=== PATIENT | female | born 1940 | race Caucasian/White ===

== ENCOUNTER 2022-08-24 12:30 | Inpatient (IN) ==
--- NOTE | 2022-08-24 13:20 | Emergency Department Note ---
HPI General Chief complaint: Urogenital-Female Stated complaint: bleeding Time Seen by Provider: 08/24/22 12:32 Source: patient and family Mode of arrival: wheelchair History of Present Illness HPI Narrative: Narrative: Patient is an 81-year-old female with a complex medical history who presents to the emergency department due to concern for blood in her stool. She states that she thinks that she has had blood in her stool for a while, but that it increased over the weekend. She states that she was seen at [facility] on 08/21/2022, and that they did not find any blood in her stool at that time. She states that since then she has had multiple episodes of what feels like blood in her stool, but states that she is not able to see. Her son looked and saw blood in toilet, and then her daughter looked later and saw blood in the toilet. She states that since being seen at [place] she has developed lightheadedness, shortness of breath, chest tightness, fatigue, and generalized weakness. She denies any other symptoms at this time. Related Data Home Medications Medication Instructions Recorded Confirmed albuterol sulfate 90 mcg/actuation 2 puff INH BID PRN shortness of 04/20/16 08/24/22 aerosol inhaler breath budesonide-formoterol HFA 160 10.2 gm IH BID 04/20/16 08/25/22 mcg-4.5 mcg/actuation aerosol inhaler carbidopa ER 50 mg-levodopa 200 mg 1 tab PO QID 11/14/18 08/24/22 tablet,extended release hydrocortisone 2.5 % topical cream 1 applic topical BID PRN unknown 11/14/18 07/01/22 acetaminophen 325 mg capsule 500 mg PO Q6H PRN Pain, Moderate 01/16/19 08/24/22 ropinirole 1 mg tablet 1 mg PO TID 01/16/19 08/24/22 dulaglutide 0.75 mg/0.5 mL 0.75 mg subcut QWEEK 02/16/20 07/01/22 subcutaneous pen injector (Trulicity) omeprazole 20 mg capsule,delayed 20 mg PO QDAY 07/01/20 08/24/22 release cholestyramine-aspartame 4 gram PO TID PRN unknown 01/07/21 07/01/22 oral powder (Cholestyramine Light) loratadine 10 mg tablet 10 mg PO QDAY 01/07/21 07/01/22 fluoxetine 60 mg tablet 60 mg PO QDAY 04/07/21 08/24/22 magnesium 250 mg tablet 500 mg PO QDAY 07/01/22 08/24/22 amlodipine 5 mg tablet 5 mg PO QDAY 08/24/22 08/24/22 atorvastatin 40 mg tablet 40 mg PO QHS 08/24/22 08/24/22 furosemide 20 mg tablet (Lasix) 20 mg PO QDAY 08/24/22 08/24/22 gabapentin 100 mg capsule 100 mg PO TID 08/24/22 08/24/22 minocycline 50 mg tablet 50 mg PO QDAY 08/24/22 08/24/22 potassium chloride 10 mEq 10 meq PO QDAY 08/24/22 08/24/22 tablet,extended release vibegron 75 mg tablet (Gemtesa) 75 mg PO QDAY 08/24/22 08/24/22 Previous Rx's Medication Instructions Recorded polyethylene glycol 3350 17 17 g PO QDAY PRN constipation #119 01/15/21 gram/dose oral powder (Miralax) grams clopidogrel 75 mg tablet (Plavix) 75 mg PO QDAY #1 tab 08/26/22 cefpodoxime 200 mg tablet 200 mg PO BID #4 tabs 08/28/22 Allergies Allergy/AdvReac Type Severity Reaction Status Date / Time prednisone Allergy Unknown Unknown Verified 08/24/22 12:41 codeine AdvReac Mild Abdominal Verified 08/24/22 17:33 Pain Diclofenac [From Voltaren] AdvReac Mild Abdominal Verified 08/24/22 17:33 Pain doxycycline AdvReac Mild Abdominal Verified 08/24/22 17:33 Pain NSAIDS (Non-Steroidal AdvReac Mild Abdominal Verified 08/24/22 17:33 Anti-Inflamma Pain Sulfa (Sulfonamide AdvReac Mild Abdominal Verified 08/24/22 17:33 Antibiotics) Pain Review of Systems ROS ROS Narrative: Narrative: Constitutional: Reports weakness (Generalized); Denies fever Eyes: Denies eye pain or vision change ENT ED: Denies throat pain or rhinorrhea Cardiovascular: Reports chest pain and edema; Denies dyspnea on exertion or orthopnea Respiratory: Reports shortness of breath; Denies cough Gastrointestinal: Reports diarrhea and hematochezia; Denies abdominal pain, nausea, vomiting, constipation or melena Musculoskeletal: Denies back pain or myalgia Integumentary: Denies rash or lesions Neurological: Reports weakness (Generalized); Denies headache, numbness, confusion, abnormal gait or dizziness Endocrine: Reports fatigue PFSH Narrative Patient History Narrative: Narrative: Medical/Surgical/Family History All Active Problems (Updated 09/03/22 @ 14:04 by Raul Higginbotham MD) COPD exacerbation (Chronic) Acute exacerbation of chronic obstructive airways disease (Chronic) Bronchitis (Chronic) CKD (chronic kidney disease), stage III (Chronic) Herpes zoster (Chronic) Onychomycosis (Chronic) Candidiasis of skin (Chronic) Diabetes mellitus (Chronic) Diabetic peripheral neuropathy (Chronic) Obesity (Chronic) Tobacco dependence syndrome (Chronic) Chronic depression (Chronic) Parkinsons disease (Chronic) Essential hypertension (Chronic) Peripheral vascular disease (Chronic) Allergic rhinitis (Chronic) COLD (chronic obstructive lung disease) (Chronic) Callus of foot (Chronic) Actinic keratosis (Chronic) Edema (Chronic) Muscle weakness (Chronic) Increased urinary frequency (Chronic) Open wound of lower limb (Chronic) Impacted cerumen, left ear (Chronic) Left shoulder pain (Chronic) 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) Hypertensive nephrosclerosis (Chronic) Urinary tract infection (Acute) Urinary tract infection (Chronic) CKD stage G3a/A2, GFR 45-59 and albumin creatinine ratio 30-299 mg/g (Chronic) Body mass index greater than 30 (Chronic) Abdominal pain (Chronic) Diarrhea (Chronic) Dysuria (Chronic) Confusion (Chronic) Shakiness (Chronic) Urgency incontinence (Chronic) OAB (overactive bladder) (Chronic) Hematochezia (Acute) Anemia (Acute) Medical History Abdominal pain Actinic keratosis Acute exacerbation of chronic obstructive airways disease Allergic rhinitis Body mass index greater than 30 Bronchitis Callus of foot Candidiasis of skin Chronic depression CKD (chronic kidney disease), stage III HTN, age related decline in GFR >> DM. Small kidneys with 200 cc PVR Volume COLD (chronic obstructive lung disease) Confusion COPD exacerbation Diabetes mellitus Diabetic peripheral neuropathy Diarrhea Dysuria Edema Essential hypertension Herpes zoster History of cataract Hypertensive nephrosclerosis No significant proteinuria Blood pressure controlled on lisinopril 2.5 mg daily Impacted cerumen, left ear Increased urinary frequency Left shoulder pain joint Muscle weakness Obesity Onychomycosis Toenails Open wound of lower limb Parkinsons disease Peripheral vascular disease Shakiness Tobacco dependence syndrome Urgency incontinence Urinary retention with incomplete bladder emptying Seen on U/S. DM, parkinsons or Rx Seen by Dr Davey, now [facility] Urology Urinary tract infection Surgical History History of adenoidectomy History of appendectomy (~1969) History of cholecystectomy History of colonoscopy W/biopsy History of gastrointestinal surgery (~07/24/20) Endoscopy History of heart surgery (~11/03/17) Cardiac stents History of hysterectomy History of knee surgery History of left knee replacement (~07/24/20) joint replacement History of salpingo-oophorectomy (~1979) History of surgery removal 2 ribs History of tonsillectomy History of tonsillectomy and adenoidectomy History of total abdominal hysterectomy (~1969) History of wisdom tooth extraction Hx of heart artery stent Family History Mother Alcoholism Father Alcoholism Daughter Lupus erythematosus Arthritis Other Diabetes Hypertension Social History Smoking Status: Former smoker and Smokeless tobacco Alcohol Intake Frequency: does not drink Substance Use: does not use Exam Narrative Narrative: Narrative: General General appearance: Present alert and in no apparent distress; Absent anxious, appears intoxicated or sleepy Head Head: Present atraumatic and normocephalic Eye Eye: Present EOMI; Absent scleral icterus or nystagmus ENT ENT: Present mucous membranes moist; Absent nasal congestion Neck Neck: Present full ROM and trachea midline Chest Chest: Present normal inspection and symmetric chest wall rise Respiratory Respiratory: Present normal lung sounds bilaterally; Absent respiratory distress, rales/crackles, wheezes, stridor or accessory muscle use Cardiovascular Cardiovascular: Present regular rate, normal rhythm and normal heart sounds Adbominal Abdominal: Present soft and normal bowel sounds; Absent distention, tenderness, guarding, rebound or rigidity Rectal Rectal: Present heme (+) stool and bloody stool Extremities Extremities: Present normal inspection, full ROM, pedal edema and pretibial edema; Absent tenderness Back Back: Present normal inspection and full ROM; Absent CVA tenderness (R) or CVA tenderness (L) Neurological Neurological: Present alert and oriented X3 Psychiatric Psychiatric: Present normal affect and normal mood Skin Skin: Present warm (WNL), dry and normal color Course Vital Signs Vital signs: Vital Signs Temperature 97.2 F 08/24/22 12:34 Pulse Rate 87 08/24/22 12:34 Respiratory Rate 20 08/24/22 12:34 Blood Pressure 152/71 08/24/22 12:34 Pulse Oximetry (%) 92 08/24/22 12:34 Oxygen Delivery Method Room Air 08/24/22 12:34 Temperature 98.1 F 08/28/22 13:17 Pulse Rate 84 08/28/22 13:17 Respiratory Rate 20 08/28/22 13:17 Blood Pressure 119/55 08/28/22 13:17 Pulse Oximetry (%) 93 08/28/22 13:17 Oxygen Delivery Method Nasal Cannula 08/28/22 13:17 Oxygen Flow Rate (L/min) 3 08/28/22 13:17 MDM MDM Narrative Medical decision making narrative: Narrative: Patient is an 81-year-old female with a complex medical history who presents to the emergency department due to concern for blood in her stool. Patient has blood in her stool. Her lightheadedness could also be due to infection including to UTI. Patient's Hgb is 7.3. Due to Hgb, hematochezia, and symptoms I have spoken to Dr. Robert who has agreed to see patient and to colonoscopy tomorrow. I have spoken to Dr. Payton and he has agreed to see and evaluate patient for admission. Lab Data 08/27/22 05:31 08/26/22 05:45 Labs: Lab Results 08/24/22 08/24/22 08/24/22 Range/Units 13:49 14:21 14:21 WBC 11.3 H (4.5-11.0) K/mcL RBC 3.26 L (3.59-5.38) M/mcL Hgb 7.3 L (11.2-15.7) g/dL Hct 26.2 L (34.1-44.9) % POC Hct (36-48) MCV 80.4 (80.0-100.0) fL MCH 22.4 L (26.0-34.0) pg MCHC 27.9 L (31.0-36.0) g/dL RDW 16.9 H (11.5-14.5) % Plt Count 329 (140-440) K/mcL MPV 9.2 (8.8-12.5) fL Immature Gran % (Auto) 0.3 (0.0-0.5) % Neut % (Auto) 55.4 (38.0-78.0) % Lymph % (Auto) 28.7 (15.5-49.0) % Tompkins % (Auto) 8.9 (1.0-12.0) % Eos % (Auto) 5.9 (0.0-7.0) % Baso % (Auto) 0.8 (0.0-2.0) % Lymph # (Auto) 3.24 (1.50-4.80) K/mcL Tompkins # (Auto) 1.00 H (0.10-0.90) K/mcL Eos # (Auto) 0.67 (0.00-0.70) K/mcL Baso # (Auto) 0.09 (0.00-0.30) K/mcL Seg Neutrophils % 45 (38-78) % Band Neutrophils % 5 (0-10) % Lymphocytes % 33 (15-49) % Monocytes % (Manual) 11 (1-12) % Eosinophils % (Manual) 6 (0-7) % Basophils % (Manual) (0-2) % Immature Gran # 0.03 (0.00-0.05) K/mcl Absolute Neutrophils 6.25 (1.80-8.00) K/mcL Reactive Lymphocytes (0-2) % Platelet Estimate Normal (Normal) RBC Morphology Abnormal A (Normal) Hypochromasia 3+ A (None Seen) Anisocytosis 1+ A (None Seen) Microcytosis 1+ A (None Seen) POC Sodium (133-145) Sodium (133-145) mmol/L POC Potassium (3.3-5.1) Potassium (3.3-5.1) mmol/L POC Chloride (96-108) Chloride (96-108) mmol/L Carbon Dioxide (22-30) mmol/L POC Total CO2 (22-30) Anion Gap (8.0-16.0) POC BUN (6-20) BUN (8-23) mg/dL Creatinine (0.6-1.1) mg/dL POC Creatinine (0.6-1.2) GFR Calculation Glucose (70-105) mg/dL POC Glucose (70-105) Uric Acid (2.5-8.0) mg/dL Calcium (8.6-10.4) mg/dL POC WB Ioniz Calcium (1.16-1.32) Phosphorus (2.5-4.5) mg/dL Magnesium (1.6-2.5) mg/dL Total Bilirubin (0.1-1.0) mg/dL Direct Bilirubin (0-0.3) mg/dL GGT (5-36) U/L AST (<32) U/L ALT (<40) U/L Alkaline Phosphatase (39-117) U/L Lactate Dehydrogenase (135-225) U/L C-Reactive Protein (0.03-0.80) mg/dL NT-Pro-B Natriuret Pep (<450.0) pg/mL Total Protein (5.9-8.4) gm/dL Albumin (3.2-5.2) gm/dL Globulin (2.2-3.7) gm/dL Albumin/Globulin Ratio (1.0-2.3) Triglycerides (<150) mg/dL Procalcitonin (<0.10) ng/mL Urine Color Yellow Urine Appearance Hazy A (Clear) Urine pH 6.0 (5.0-9.0) Ur Specific Macy 1.011 (1.000-1.035) Urine Protein 30 A (Negative) mg/dL Urine Glucose (UA) Negative (Negative) mg/dL Urine Ketones Negative (Negative) mg/dL Urine Occult Blood >=1.0 A (Negative) mg/dL Urine Nitrate Negative (Negative) Urine Bilirubin Negative (Negative) mg/dL Urine Urobilinogen Negative mg/dL Ur Leukocyte Esterase 250 A (Negative) /uL Urine RBC 56 H (0-3) /hpf Urine WBC 89 H (0-4) /hpf Ur Squamous Epith Cells 5 H (0-4) /hpf Urine Bacteria None (0) /hpf Ur Culture Indicated? No Mycoplasma pneumon IgG Mycoplasma pneumon IgM U/mL Ur Strep pneumoniae Ag (Negative) POC Troponin I (0.00-0.08) 08/24/22 08/24/22 08/24/22 Range/Units 14:23 14:26 15:00 WBC (4.5-11.0) K/mcL RBC (3.59-5.38) M/mcL Hgb (11.2-15.7) g/dL Hct (34.1-44.9) % POC Hct 25.0 L (36-48) MCV (80.0-100.0) fL MCH (26.0-34.0) pg MCHC (31.0-36.0) g/dL RDW (11.5-14.5) % Plt Count (140-440) K/mcL MPV (8.8-12.5) fL Immature Gran % (Auto) (0.0-0.5) % Neut % (Auto) (38.0-78.0) % Lymph % (Auto) (15.5-49.0) % Tompkins % (Auto) (1.0-12.0) % Eos % (Auto) (0.0-7.0) % Baso % (Auto) (0.0-2.0) % Lymph # (Auto) (1.50-4.80) K/mcL Tompkins # (Auto) (0.10-0.90) K/mcL Eos # (Auto) (0.00-0.70) K/mcL Baso # (Auto) (0.00-0.30) K/mcL Seg Neutrophils % (38-78) % Band Neutrophils % (0-10) % Lymphocytes % (15-49) % Monocytes % (Manual) (1-12) % Eosinophils % (Manual) (0-7) % Basophils % (Manual) (0-2) % Immature Gran # (0.00-0.05) K/mcl Absolute Neutrophils (1.80-8.00) K/mcL Reactive Lymphocytes (0-2) % Platelet Estimate (Normal) RBC Morphology (Normal) Hypochromasia (None Seen) Anisocytosis (None Seen) Microcytosis (None Seen) POC Sodium 137 (133-145) Sodium (133-145) mmol/L POC Potassium 4.3 (3.3-5.1) Potassium (3.3-5.1) mmol/L POC Chloride 101 (96-108) Chloride (96-108) mmol/L Carbon Dioxide (22-30) mmol/L POC Total CO2 26.0 (22-30) Anion Gap (8.0-16.0) POC BUN 20 (6-20) BUN (8-23) mg/dL Creatinine (0.6-1.1) mg/dL POC Creatinine 1.2 (0.6-1.2) GFR Calculation Glucose (70-105) mg/dL POC Glucose 182 H (70-105) Uric Acid (2.5-8.0) mg/dL Calcium (8.6-10.4) mg/dL POC WB Ioniz Calcium 1.14 L (1.16-1.32) Phosphorus (2.5-4.5) mg/dL Magnesium (1.6-2.5) mg/dL Total Bilirubin (0.1-1.0) mg/dL Direct Bilirubin (0-0.3) mg/dL GGT (5-36) U/L AST (<32) U/L ALT (<40) U/L Alkaline Phosphatase (39-117) U/L Lactate Dehydrogenase (135-225) U/L C-Reactive Protein (0.03-0.80) mg/dL NT-Pro-B Natriuret Pep 117.9 (<450.0) pg/mL Total Protein (5.9-8.4) gm/dL Albumin (3.2-5.2) gm/dL Globulin (2.2-3.7) gm/dL Albumin/Globulin Ratio (1.0-2.3) Triglycerides (<150) mg/dL Procalcitonin (<0.10) ng/mL Urine Color Urine Appearance (Clear) Urine pH (5.0-9.0) Ur Specific Macy (1.000-1.035) Urine Protein (Negative) mg/dL Urine Glucose (UA) (Negative) mg/dL Urine Ketones (Negative) mg/dL Urine Occult Blood (Negative) mg/dL Urine Nitrate (Negative) Urine Bilirubin (Negative) mg/dL Urine Urobilinogen mg/dL Ur Leukocyte Esterase (Negative) /uL Urine RBC (0-3) /hpf Urine WBC (0-4) /hpf Ur Squamous Epith Cells (0-4) /hpf Urine Bacteria (0) /hpf Ur Culture Indicated? Mycoplasma pneumon IgG Mycoplasma pneumon IgM U/mL Ur Strep pneumoniae Ag (Negative) POC Troponin I < 0.02 (0.00-0.08) 08/24/22 08/24/22 08/24/22 Range/Units 15:15 15:15 17:29 WBC (4.5-11.0) K/mcL RBC (3.59-5.38) M/mcL Hgb (11.2-15.7) g/dL Hct (34.1-44.9) % POC Hct (36-48) MCV (80.0-100.0) fL MCH (26.0-34.0) pg MCHC (31.0-36.0) g/dL RDW (11.5-14.5) % Plt Count (140-440) K/mcL MPV (8.8-12.5) fL Immature Gran % (Auto) (0.0-0.5) % Neut % (Auto) (38.0-78.0) % Lymph % (Auto) (15.5-49.0) % Tompkins % (Auto) (1.0-12.0) % Eos % (Auto) (0.0-7.0) % Baso % (Auto) (0.0-2.0) % Lymph # (Auto) (1.50-4.80) K/mcL Tompkins # (Auto) (0.10-0.90) K/mcL Eos # (Auto) (0.00-0.70) K/mcL Baso # (Auto) (0.00-0.30) K/mcL Seg Neutrophils % (38-78) % Band Neutrophils % (0-10) % Lymphocytes % (15-49) % Monocytes % (Manual) (1-12) % Eosinophils % (Manual) (0-7) % Basophils % (Manual) (0-2) % Immature Gran # (0.00-0.05) K/mcl Absolute Neutrophils (1.80-8.00) K/mcL Reactive Lymphocytes (0-2) % Platelet Estimate (Normal) RBC Morphology (Normal) Hypochromasia (None Seen) Anisocytosis (None Seen) Microcytosis (None Seen) POC Sodium (133-145) Sodium (133-145) mmol/L POC Potassium (3.3-5.1) Potassium (3.3-5.1) mmol/L POC Chloride (96-108) Chloride (96-108) mmol/L Carbon Dioxide (22-30) mmol/L POC Total CO2 (22-30) Anion Gap (8.0-16.0) POC BUN (6-20) BUN (8-23) mg/dL Creatinine (0.6-1.1) mg/dL POC Creatinine (0.6-1.2) GFR Calculation Glucose (70-105) mg/dL POC Glucose (70-105) Uric Acid (2.5-8.0) mg/dL Calcium (8.6-10.4) mg/dL POC WB Ioniz Calcium (1.16-1.32) Phosphorus (2.5-4.5) mg/dL Magnesium (1.6-2.5) mg/dL Total Bilirubin (0.1-1.0) mg/dL Direct Bilirubin (0-0.3) mg/dL GGT (5-36) U/L AST (<32) U/L ALT (<40) U/L Alkaline Phosphatase (39-117) U/L Lactate Dehydrogenase (135-225) U/L C-Reactive Protein 1.00 H (0.03-0.80) mg/dL NT-Pro-B Natriuret Pep (<450.0) pg/mL Total Protein (5.9-8.4) gm/dL Albumin (3.2-5.2) gm/dL Globulin (2.2-3.7) gm/dL Albumin/Globulin Ratio (1.0-2.3) Triglycerides (<150) mg/dL Procalcitonin 0.10 H (<0.10) ng/mL Urine Color Urine Appearance (Clear) Urine pH (5.0-9.0) Ur Specific Macy (1.000-1.035) Urine Protein (Negative) mg/dL Urine Glucose (UA) (Negative) mg/dL Urine Ketones (Negative) mg/dL Urine Occult Blood (Negative) mg/dL Urine Nitrate (Negative) Urine Bilirubin (Negative) mg/dL Urine Urobilinogen mg/dL Ur Leukocyte Esterase (Negative) /uL Urine RBC (0-3) /hpf Urine WBC (0-4) /hpf Ur Squamous Epith Cells (0-4) /hpf Urine Bacteria (0) /hpf Ur Culture Indicated? Mycoplasma pneumon IgG < or = 0.90 Mycoplasma pneumon IgM 81 U/mL Ur Strep pneumoniae Ag (Negative) POC Troponin I (0.00-0.08) 08/24/22 08/25/22 08/25/22 Range/Units 17:29 05:56 05:56 WBC 12.0 H (4.5-11.0) K/mcL RBC 3.97 (3.59-5.38) M/mcL Hgb 9.6 L (11.2-15.7) g/dL Hct 31.7 L (34.1-44.9) % POC Hct (36-48) MCV 79.8 L (80.0-100.0) fL MCH 24.2 L (26.0-34.0) pg MCHC 30.3 L (31.0-36.0) g/dL RDW 16.3 H (11.5-14.5) % Plt Count 310 (140-440) K/mcL MPV 8.9 (8.8-12.5) fL Immature Gran % (Auto) 0.3 (0.0-0.5) % Neut % (Auto) 57.2 (38.0-78.0) % Lymph % (Auto) 24.8 (15.5-49.0) % Tompkins % (Auto) 10.2 (1.0-12.0) % Eos % (Auto) 6.7 (0.0-7.0) % Baso % (Auto) 0.8 (0.0-2.0) % Lymph # (Auto) 2.97 (1.50-4.80) K/mcL Tompkins # (Auto) 1.22 H (0.10-0.90) K/mcL Eos # (Auto) 0.80 H (0.00-0.70) K/mcL Baso # (Auto) 0.09 (0.00-0.30) K/mcL Seg Neutrophils % (38-78) % Band Neutrophils % (0-10) % Lymphocytes % (15-49) % Monocytes % (Manual) (1-12) % Eosinophils % (Manual) (0-7) % Basophils % (Manual) (0-2) % Immature Gran # 0.04 (0.00-0.05) K/mcl Absolute Neutrophils 6.87 (1.80-8.00) K/mcL Reactive Lymphocytes (0-2) % Platelet Estimate (Normal) RBC Morphology (Normal) Hypochromasia (None Seen) Anisocytosis (None Seen) Microcytosis (None Seen) POC Sodium (133-145) Sodium 140 (133-145) mmol/L POC Potassium (3.3-5.1) Potassium 4.0 (3.3-5.1) mmol/L POC Chloride (96-108) Chloride 100 (96-108) mmol/L Carbon Dioxide 28 (22-30) mmol/L POC Total CO2 (22-30) Anion Gap 12.0 (8.0-16.0) POC BUN (6-20) BUN 16 (8-23) mg/dL Creatinine 1.0 (0.6-1.1) mg/dL POC Creatinine (0.6-1.2) GFR Calculation 52 Glucose 114 H (70-105) mg/dL POC Glucose (70-105) Uric Acid 5.6 (2.5-8.0) mg/dL Calcium 8.9 (8.6-10.4) mg/dL POC WB Ioniz Calcium (1.16-1.32) Phosphorus 4.3 (2.5-4.5) mg/dL Magnesium 2.0 (1.6-2.5) mg/dL Total Bilirubin 0.6 (0.1-1.0) mg/dL Direct Bilirubin < 0.2 (0-0.3) mg/dL GGT 108 H (5-36) U/L AST 16 (<32) U/L ALT < 5 (<40) U/L Alkaline Phosphatase 82 (39-117) U/L Lactate Dehydrogenase 201 (135-225) U/L C-Reactive Protein (0.03-0.80) mg/dL NT-Pro-B Natriuret Pep (<450.0) pg/mL Total Protein 5.9 (5.9-8.4) gm/dL Albumin 3.5 (3.2-5.2) gm/dL Globulin 2.4 (2.2-3.7) gm/dL Albumin/Globulin Ratio 1.5 (1.0-2.3) Triglycerides 192 H (<150) mg/dL Procalcitonin (<0.10) ng/mL Urine Color Urine Appearance (Clear) Urine pH (5.0-9.0) Ur Specific Macy (1.000-1.035) Urine Protein (Negative) mg/dL Urine Glucose (UA) (Negative) mg/dL Urine Ketones (Negative) mg/dL Urine Occult Blood (Negative) mg/dL Urine Nitrate (Negative) Urine Bilirubin (Negative) mg/dL Urine Urobilinogen mg/dL Ur Leukocyte Esterase (Negative) /uL Urine RBC (0-3) /hpf Urine WBC (0-4) /hpf Ur Squamous Epith Cells (0-4) /hpf Urine Bacteria (0) /hpf Ur Culture Indicated? Mycoplasma pneumon IgG Mycoplasma pneumon IgM U/mL Ur Strep pneumoniae Ag Negative (Negative) POC Troponin I (0.00-0.08) 08/26/22 08/26/22 08/27/22 Range/Units 05:45 05:45 05:31 WBC 14.0 H 11.5 H (4.5-11.0) K/mcL RBC 3.98 3.87 (3.59-5.38) M/mcL Hgb 9.5 L 9.2 L (11.2-15.7) g/dL Hct 32.1 L 31.2 L (34.1-44.9) % POC Hct (36-48) MCV 80.7 80.6 (80.0-100.0) fL MCH 23.9 L 23.8 L (26.0-34.0) pg MCHC 29.6 L 29.5 L (31.0-36.0) g/dL RDW 16.9 H 17.1 H (11.5-14.5) % Plt Count 340 334 (140-440) K/mcL MPV 9.4 9.1 (8.8-12.5) fL Immature Gran % (Auto) 0.5 (0.0-0.5) % Neut % (Auto) 62.3 (38.0-78.0) % Lymph % (Auto) 21.4 (15.5-49.0) % Tompkins % (Auto) 10.0 (1.0-12.0) % Eos % (Auto) 5.1 (0.0-7.0) % Baso % (Auto) 0.7 (0.0-2.0) % Lymph # (Auto) 3.01 (1.50-4.80) K/mcL Tompkins # (Auto) 1.40 H (0.10-0.90) K/mcL Eos # (Auto) 0.71 H (0.00-0.70) K/mcL Baso # (Auto) 0.10 (0.00-0.30) K/mcL Seg Neutrophils % 63 (38-78) % Band Neutrophils % 1 (0-10) % Lymphocytes % 16 (15-49) % Monocytes % (Manual) 12 (1-12) % Eosinophils % (Manual) 4 (0-7) % Basophils % (Manual) 1 (0-2) % Immature Gran # 0.07 H (0.00-0.05) K/mcl Absolute Neutrophils 8.75 H (1.80-8.00) K/mcL Reactive Lymphocytes 3 H (0-2) % Platelet Estimate Normal (Normal) RBC Morphology Abnormal A (Normal) Hypochromasia 1+ A (None Seen) Anisocytosis 2+ A (None Seen) Microcytosis (None Seen) POC Sodium (133-145) Sodium 137 (133-145) mmol/L POC Potassium (3.3-5.1) Potassium 3.9 (3.3-5.1) mmol/L POC Chloride (96-108) Chloride 96 (96-108) mmol/L Carbon Dioxide 28 (22-30) mmol/L POC Total CO2 (22-30) Anion Gap 13.0 (8.0-16.0) POC BUN (6-20) BUN 16 (8-23) mg/dL Creatinine 1.2 H (0.6-1.1) mg/dL POC Creatinine (0.6-1.2) GFR Calculation 42 Glucose 158 H (70-105) mg/dL POC Glucose (70-105) Uric Acid 6.0 (2.5-8.0) mg/dL Calcium 8.6 (8.6-10.4) mg/dL POC WB Ioniz Calcium (1.16-1.32) Phosphorus 4.0 (2.5-4.5) mg/dL Magnesium 1.9 (1.6-2.5) mg/dL Total Bilirubin 0.2 (0.1-1.0) mg/dL Direct Bilirubin < 0.2 (0-0.3) mg/dL GGT 105 H (5-36) U/L AST 18 (<32) U/L ALT < 5 (<40) U/L Alkaline Phosphatase 88 (39-117) U/L Lactate Dehydrogenase 225 (135-225) U/L C-Reactive Protein (0.03-0.80) mg/dL NT-Pro-B Natriuret Pep (<450.0) pg/mL Total Protein 6.2 (5.9-8.4) gm/dL Albumin 3.4 (3.2-5.2) gm/dL Globulin 2.8 (2.2-3.7) gm/dL Albumin/Globulin Ratio 1.2 (1.0-2.3) Triglycerides 179 H (<150) mg/dL Procalcitonin (<0.10) ng/mL Urine Color Urine Appearance (Clear) Urine pH (5.0-9.0) Ur Specific Macy (1.000-1.035) Urine Protein (Negative) mg/dL Urine Glucose (UA) (Negative) mg/dL Urine Ketones (Negative) mg/dL Urine Occult Blood (Negative) mg/dL Urine Nitrate (Negative) Urine Bilirubin (Negative) mg/dL Urine Urobilinogen mg/dL Ur Leukocyte Esterase (Negative) /uL Urine RBC (0-3) /hpf Urine WBC (0-4) /hpf Ur Squamous Epith Cells (0-4) /hpf Urine Bacteria (0) /hpf Ur Culture Indicated? Mycoplasma pneumon IgG Mycoplasma pneumon IgM U/mL Ur Strep pneumoniae Ag (Negative) POC Troponin I (0.00-0.08) EKG Data EKG #1: EKG attestation: Yes I reviewed and interpreted this EKG. EKG results narrative: Normal sinus rhythm with a rate of 91, equivocal axis, MO of 201, QRS 107, QTc of 537, T wave flattening in leads III and aVF, and absence of ST elevation or depression. Discharge Plan Patient/Caregiver Discharge Instructions Pt seen by SH[employer]TLE INSPECTOR/PA only: No Clinical Impression: Hematochezia, Anemia Activity: increase activity as tolerated Patient Disposition: Xfer As Inpt ([facility]) Condition: Fair Discharge Date/Time: 08/24/22 17:15
[2022-08-24 14:39] LABS: Appearance,Urine HAZY (Clear); Bilirubin,Urine Negative (Negative); Color,Urine YELLOW; Culture Indicated,Urine No; Glucose,Urine (UA) Negative (Negative); Ketones,Urine Negative (Negative); Leukocyte Esterase,Urine 250 /uL (Negative); Nitrate,Urine Negative (Negative); Protein,Urine 30 mg/dL (Negative); Specific Gravity,Urine 1.011 (1.000-1.035); Urine Blood >=1.0 mg/dL (Negative); Urine RBC 56 /hpf (0-3); Urine Squamous Epithelial Cell 5 /hpf (0-4); Urine WBC 89 /hpf (0-4); Urobilinogen,Urine Negative
[2022-08-24 14:40] LABS: POC Calcium, Ionized 1.14 (1.16-1.32); POC Creatinine 1.2 (0.6-1.2); POC Potassium 4.3 (3.3-5.1)
[2022-08-24 14:50] LABS: Basophils # (Auto) 0.09 K/mcL (0.00-0.30); Basophils % (Auto) 0.8 % (0.0-2.0); Eosinophils # (Auto) 0.67 K/mcL (0.00-0.70); Eosinophils % (Auto) 5.9 % (0.0-7.0); Hematocrit 26.2 % (34.1-44.9); Hemoglobin 7.3 g/dL (11.2-15.7); Lymphocytes # (Auto) 3.24 K/mcL (1.50-4.80); Lymphocytes % (Auto) 28.7 % (15.5-49.0); Mean Cell Volume 80.4 fL (80.0-100.0); Mean Corpuscular HGB Conc 27.9 g/dL (31.0-36.0); Mean Platelet Volume 9.2 fL (8.8-12.5); Monocytes % (Auto) 8.9 % (1.0-12.0); Neutrophils % (Auto) 55.4 % (38.0-78.0); Platelet Count 329 K/mcL (140-440); RBC 3.26 M/mcL (3.59-5.38); Red Cell Distribution Width 16.9 % (11.5-14.5); WBC 11.3 K/mcL (4.5-11.0)
--- NOTE | 2022-08-24 14:54 | XRay Report ---
INDICATION: SOB, Chest pain TECHNIQUE: AP portable semiupright chest x-ray COMPARISON: Previous chest x-rays dated 08/05/2022, 04/20/2016, 11/14/2015 FINDINGS: Lungs:There are bilateral parenchymal infiltrates which appear worse than on previous examination. These are predominantly interstitial. There is peribronchial thickening consistent with bronchitis or reactive airway disease. Interstitial infiltrates may indicate pneumonia, including atypical pneumonia. Heart, vascular:No significant cardiomegaly. Pulmonary vascularity is normal. No pulmonary edema or pulmonary congestion Mediastinum, josette:No mediastinal widening. No hilar mass Pleura:No pleural fluid. No pleural-based mass or calcification Skeletal:Negative. IMPRESSION: 1. Mildly increasing interstitial infiltrates as above 2. Pneumonia is possible including atypical pneumonia Interpreted and Authenticated by: Jose Pedersen 08/24/22
[2022-08-24] MEDS ORDERED: AZITHROMYCIN 500 MG in DEXTROSE 5% IN WATER 250 ML IV ONE (14:56)
[2022-08-24] MEDS ORDERED: cefTRIAXone 1 GM VIAL IV ONE (14:56)
--- NOTE | 2022-08-24 16:13 | Internal Med History&Physical ---
HPI History of Present Illness Patient information: Note initiated : 08/24/22 at 3:49 pm Service Date, if different from initiated Date: [] Patient: Brigitte Cifuentes a 81 y/o F admitted on for bleeding. Chief Complaint: [] History of present illness: Ms. Cifuentes is a 81 year old F Who presents to the ED with primary blood per rectum. Patient states she is think she has had some bleeding for some time but feels over the past weekend it has increased in per the family they also saw bright red blood in the stool. She is nearly blind so she was I am unable to visualize herself. She does complain of also a significantly increasing weakness. She has some dizziness lightheadedness. She has a chronic cough but says she has a different cough lately does not particularly worse but is deeper and wet and occasionally will cough up thick sputum. She denies out of the normal shortness of breath. She does complain of headaches at times. And is chilled as well at times. She also complains of lower extremity edema which she has had for about a month. She was told by Dr. Marquis's PA that he thought she had CHF and she was being scheduled to see a fretted string instrument repairer. Patient also started on Lasix outpatient In the ED she was found to have a hemoglobin of 7.3 markedly down from her baseline. Stool guaiac was Hemoccult positive. In the ED. Chest x-ray was done which showed some b/l interstitial infiltrates. There was concern for pneumonia patient was started on antibiotics in the ED. Dr. Robert was contacted for the GI bleed who will perform colonoscopy in the morning. In April patient had a transcarotid arterial revascularization by Dr. Marquis. She had previously been on aspirin and Plavix was started in addition at that time. On the discharge instructions patient was to remain on Plavix and aspirin for at least 3 months. Review of Systems: Pertinent positives as above. Denies /fever//nausea/vomiting/abdominal pain//dyspnea/diarrhea. Remaining 10 point review of system reviewed negative PHYSICAL EXAM General: Alert, Awake, No acute Distress, obese Eyes/N/T: EOMI, no scleral icterus, PERRL, Head/Neck: neck supple, full ROM, normocephalic atraumatic CV: RRR, No murmurs, normal s1/s2 Pulm: Fine bibasilar Rales occasional wheeze, no respiratory distress Abd: soft, nontender, +BS x4 Ext: no clubbing/cyanosis, b/l LE 2+ edema, Neuro: Alert, no focal deficits, moves all extremities, CN 2-12 grossly intact, sensations intact b/l upper/lower Psychiatric: Skin: warm/dry, normal color PFSH PFSH All Active Problems (Updated 07/01/22 @ 16:06 by Kike Renee MD) COPD exacerbation (Chronic) Acute exacerbation of chronic obstructive airways disease (Chronic) Bronchitis (Chronic) CKD (chronic kidney disease), stage III (Chronic) Herpes zoster (Chronic) Onychomycosis (Chronic) Candidiasis of skin (Chronic) Diabetes mellitus (Chronic) Diabetic peripheral neuropathy (Chronic) Obesity (Chronic) Tobacco dependence syndrome (Chronic) Chronic depression (Chronic) Parkinsons disease (Chronic) Essential hypertension (Chronic) Peripheral vascular disease (Chronic) Allergic rhinitis (Chronic) COLD (chronic obstructive lung disease) (Chronic) Callus of foot (Chronic) Actinic keratosis (Chronic) Edema (Chronic) Muscle weakness (Chronic) Increased urinary frequency (Chronic) Open wound of lower limb (Chronic) Impacted cerumen, left ear (Chronic) Left shoulder pain (Chronic) 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) Hypertensive nephrosclerosis (Chronic) Urinary tract infection (Acute) Urinary tract infection (Chronic) CKD stage G3a/A2, GFR 45-59 and albumin creatinine ratio 30-299 mg/g (Chronic) Body mass index greater than 30 (Chronic) Abdominal pain (Chronic) Diarrhea (Chronic) Dysuria (Chronic) Confusion (Chronic) Shakiness (Chronic) Urgency incontinence (Chronic) OAB (overactive bladder) (Chronic) Medical History Abdominal pain Actinic keratosis Acute exacerbation of chronic obstructive airways disease Allergic rhinitis Body mass index greater than 30 Bronchitis Callus of foot Candidiasis of skin Chronic depression CKD (chronic kidney disease), stage III HTN, age related decline in GFR >> DM. Small kidneys with 200 cc PVR Volume COLD (chronic obstructive lung disease) Confusion COPD exacerbation Diabetes mellitus Diabetic peripheral neuropathy Diarrhea Dysuria Edema Essential hypertension Herpes zoster History of cataract Hypertensive nephrosclerosis No significant proteinuria Blood pressure controlled on lisinopril 2.5 mg daily Impacted cerumen, left ear Increased urinary frequency Left shoulder pain joint Muscle weakness Obesity Onychomycosis Toenails Open wound of lower limb Parkinsons disease Peripheral vascular disease Shakiness Tobacco dependence syndrome Urgency incontinence Urinary retention with incomplete bladder emptying Seen on [facility]. [facility], parkinsons or Rx Seen by Dr Davey, now [facility] Urology Urinary tract infection Surgical History History of adenoidectomy History of appendectomy (~1969) History of cholecystectomy History of colonoscopy W/biopsy History of gastrointestinal surgery (~07/24/20) Endoscopy History of heart surgery (~11/03/17) Cardiac stents History of hysterectomy History of knee surgery History of left knee replacement (~07/24/20) joint replacement History of salpingo-oophorectomy (~1979) History of surgery removal 2 ribs History of tonsillectomy History of tonsillectomy and adenoidectomy History of total abdominal hysterectomy (~1969) History of wisdom tooth extraction Hx of heart artery stent Family History Mother Alcoholism Father Alcoholism Daughter Lupus erythematosus Arthritis Other Diabetes Hypertension Social History marital status: education level: college occupational status: disabled smoking status: Former smoker smoking status stop date: 04/15/22 alcohol intake frequency: does not drink substance use type: does not use seatbelt use: always working smoke detector in home: Yes firearms in home: No MEDS/ALLERGIES Home Medications and Allergies Home Medications Medication Instructions Recorded Confirmed Type albuterol sulfate 90 mcg/actuation 2 puff INH BID PRN shortness of 04/20/16 08/24/22 History aerosol inhaler breath budesonide-formoterol HFA 160 10.2 gm IH BID 04/20/16 07/01/22 History mcg-4.5 mcg/actuation aerosol inhaler carbidopa ER 50 mg-levodopa 200 mg 1 tab PO QID 11/14/18 08/24/22 History tablet,extended release clopidogrel 75 mg tablet 75 mg PO QDAY 11/14/18 08/24/22 History hydrocortisone 2.5 % topical cream 1 applic topical BID PRN unknown 11/14/18 07/01/22 History acetaminophen 325 mg capsule 500 mg PO Q6H PRN Pain, Moderate 01/16/19 08/24/22 History ropinirole 1 mg tablet 1 mg PO TID 01/16/19 08/24/22 History dulaglutide 0.75 mg/0.5 mL 0.75 mg subcut QWEEK 02/16/20 07/01/22 History subcutaneous pen injector (Trulicity) omeprazole 20 mg capsule,delayed 20 mg PO QDAY 07/01/20 08/24/22 History release aspirin 81 mg tablet,delayed 81 mg PO QAM 01/07/21 08/24/22 History release cholestyramine-aspartame 4 gram PO TID PRN unknown 01/07/21 07/01/22 History oral powder (Cholestyramine Light) loratadine 10 mg tablet 10 mg PO QDAY 01/07/21 07/01/22 History polyethylene glycol 3350 17 17 g PO QDAY PRN constipation #119 01/15/21 07/01/22 Rx gram/dose oral powder (Miralax) grams fluoxetine 60 mg tablet 60 mg PO QDAY 04/07/21 08/24/22 History gabapentin 300 mg tablet,extended 300 mg PO QID 08/04/21 08/24/22 History release 24 hr vibegron 75 mg tablet 75 mg PO QDAY #30 tabs 06/17/22 07/01/22 Rx magnesium 250 mg tablet 500 mg PO QDAY 07/01/22 08/24/22 History amlodipine 5 mg tablet 5 mg PO QDAY 08/24/22 08/24/22 History atorvastatin 40 mg tablet 40 mg PO QHS 08/24/22 08/24/22 History furosemide 20 mg tablet (Lasix) 20 mg PO QDAY 08/24/22 08/24/22 History minocycline 50 mg tablet 50 mg PO QDAY 08/24/22 08/24/22 History potassium chloride 10 mEq 10 meq PO QDAY 08/24/22 08/24/22 History tablet,extended release vibegron 75 mg tablet (Gemtesa) 75 mg PO QDAY 08/24/22 08/24/22 History Allergies Allergy/AdvReac Type Severity Reaction Status Date / Time prednisone Allergy Unknown Unknown Verified 08/24/22 12:41 codeine AdvReac Mild Abdominal Verified 08/24/22 17:33 Pain Diclofenac [From Voltaren] AdvReac Mild Abdominal Verified 08/24/22 17:33 Pain doxycycline AdvReac Mild Abdominal Verified 08/24/22 17:33 Pain NSAIDS (Non-Steroidal AdvReac Mild Abdominal Verified 08/24/22 17:33 Anti-Inflamma Pain Sulfa (Sulfonamide AdvReac Mild Abdominal Verified 08/24/22 17:33 Antibiotics) Pain EXAM Constitutional Vitals: Temp Pulse Resp BP Pulse Ox O2 Del Method O2 Flow Rate 97.2 F 85 20 152/71 100 Nasal Cannula 2 08/24/22 12:34 08/24/22 15:22 08/24/22 12:34 08/24/22 12:34 08/24/22 15:22 08/24/22 15:22 08/24/22 15:22 DATA Data Completed and Pending Labs: Labs from last 24 hours 08/24/22 08/24/22 08/24/22 15:15 15:15 14:26 WBC RBC Hgb Hct POC Hct MCV MCH MCHC RDW Plt Count MPV Immature Gran % (Auto) Neut % (Auto) Lymph % (Auto) [place] % (Auto) Eos % (Auto) Baso % (Auto) Lymph # (Auto) [place] # (Auto) Eos # (Auto) Baso # (Auto) Immature Gran # Absolute Neutrophils POC Sodium POC Potassium POC Chloride POC Total CO2 POC BUN POC Creatinine POC Glucose POC WB Ioniz Calcium C-Reactive Protein Pending Procalcitonin Pending Urine Color Urine Appearance Urine pH Ur Specific [place] Urine Protein Urine Glucose (UA) Urine Ketones Urine Occult Blood Urine Nitrate Urine Bilirubin Urine Urobilinogen Ur Leukocyte Esterase Urine RBC Urine WBC Ur Squamous Epith Cells Urine Bacteria Ur Culture Indicated? POC Troponin I < 0.02 08/24/22 08/24/22 08/24/22 14:23 14:21 13:49 WBC 11.3 H RBC 3.26 L Hgb 7.3 L Hct 26.2 L POC Hct 25.0 L MCV 80.4 MCH 22.4 L MCHC 27.9 L RDW 16.9 H Plt Count 329 MPV 9.2 Immature Gran % (Auto) 0.3 Neut % (Auto) 55.4 Lymph % (Auto) 28.7 [place] % (Auto) 8.9 Eos % (Auto) 5.9 Baso % (Auto) 0.8 Lymph # (Auto) 3.24 [place] # (Auto) 1.00 H Eos # (Auto) 0.67 Baso # (Auto) 0.09 Immature Gran # 0.03 Absolute Neutrophils 6.25 POC Sodium 137 POC Potassium 4.3 POC Chloride 101 POC Total CO2 26.0 POC BUN 20 POC Creatinine 1.2 POC Glucose 182 H POC WB Ioniz Calcium 1.14 L C-Reactive Protein Procalcitonin Urine Color Yellow Urine Appearance Hazy A Urine pH 6.0 Ur Specific [place] 1.011 Urine Protein 30 A Urine Glucose (UA) Negative Urine Ketones Negative Urine Occult Blood >=1.0 A Urine Nitrate Negative Urine Bilirubin Negative Urine Urobilinogen Negative Ur Leukocyte Esterase 250 A Urine RBC 56 H Urine WBC 89 H Ur Squamous Epith Cells 5 H Urine Bacteria None Ur Culture Indicated? No POC Troponin I A/P Narrative A/P Narrative: A: *GIB, lower: *Symptomatic acute blood loss anemia on chronic: 06/25 above *Peripheral edema: pt being sent to see cardiology outpt -pt had an echo last year with good EF and grade I diastolic dysfxn, -bnp low *Generalized weakness/deconditioning: *Carotid aa dz: pt had right IC revascularization by Dr. Marquis last April and Plavix was added to her aspirin for which she was supposed to be on both for at least 3 months. *Viral PNA possible: *DM2 w/neuropathy: cont dhaval *CKD IIIb: *COPD (2L@ home), chronic respiratory failure: *Parkinson disease: Continue Sinemet *HTN: *Depression: Continue SSRI *GERD: *Obesity: BMI 36 * P: -Dr. Du for endoscopy -2prbc transfuse -monitor H&H -hold asa/plavix for now and likely only needs to be on one going forward -rvp, man diff, [place], myco -hold abx for now pending further pna w/u -prn IV lasix -home IH's and supp O2 -ssi -cont norvasc -PT/OT -CM for placement needs -ppx: SCD / home ppi Time Spent With Patient Time: Total time spent is greater than 50% in coordination of care (as documented) at patient's floor/unit and/or counseling patient: Initial: Total time with patient: 75 - 90 minutes
[2022-08-24] MEDS ORDERED: IPRATROPIUM/ALBUTEROL 3 ML AMPUL.NEB NEB PRN (17:29)
[2022-08-24] MEDS ORDERED: 0.9 % SODIUM CHLORIDE 250 ML IV SCH (17:29)
[2022-08-24] MEDS ORDERED: FUROSEMIDE 40 MG/4 ML VIAL IV ONE ×2 (17:29→20:38)
[2022-08-24] MEDS ORDERED: POTASSIUM CHLORIDE 20 MEQ TABLET PO PRN ×2 (17:29)
[2022-08-24] MEDS ORDERED: DEXTROSE 50% 50 ML VIAL IV PRN (17:29)
[2022-08-24] MEDS ORDERED: DEXTROSE 31 GM ORAL.SUSP PO PRN (17:29)
[2022-08-24] MEDS ORDERED: SENNOSIDES 1 TABLET PO PRN (17:29)
[2022-08-24] MEDS ORDERED: ONDANSETRON 4 MG/2 ML VIAL IV PRN (17:29)
[2022-08-24] MEDS ORDERED: POTASSIUM CHLORIDE 40 MEQ in DEXTROSE 5% IN WATER 500 ML IV PRN (17:29)
[2022-08-24] MEDS ORDERED: POLYETHYLENE GLYCOL 3350 17 GM PACKET PO PRN (17:29)
[2022-08-24] MEDS ORDERED: MAGNESIUM SULFATE 2 GM/50 ML BAG IV PRN (17:29)
[2022-08-24 19:12] LABS: Anisocytosis 1+ (None Seen); Band Neutrophils % 5 % (0-10); Eosinophils % (Manual) 6 % (0-7); Hypochromasia 3+ (None Seen); Lymphocytes % 33 % (15-49); Microcytosis 1+ (None Seen); Monocytes % (Manual) 11 % (1-12); Platelet Estimate NORMAL (Normal); RBC Morphology ABNORMAL (Normal); Segmented Neutrophils % 45 % (38-78)
[2022-08-24] MEDS: INSULIN LISPRO 1 UNIT/0.01 ML UNIT SQ SCH ×2 (20:19→21:14)
[2022-08-24] MEDS ORDERED: GABAPENTIN 300 MG PO SCH (21:00)
[2022-08-24] MEDS: 0.9 % SODIUM CHLORIDE 10 ML SYRINGE IV SCH (21:17)
[2022-08-24] MEDS: ACETAMINOPHEN 325 MG TABLET PO PRN (21:23)
[2022-08-24] MEDS: CARBIDOPA/LEVODOPA CR 25/100 TABLET PO SCH (21:25)
[2022-08-24] MEDS: ATORVASTATIN 40 MG TABLET PO SCH (21:26)
[2022-08-24] MEDS: rOPINIRole 1 MG TABLET PO SCH (21:26)
[2022-08-24] MEDS: GABAPENTIN 100 MG CAPSULE PO SCH (22:48)
[2022-08-25] MEDS: 0.9 % SODIUM CHLORIDE 10 ML SYRINGE IV SCH ×4 (05:32→23:38)
[2022-08-25 07:01] LABS: Basophils # (Auto) 0.09 K/mcL (0.00-0.30); Basophils % (Auto) 0.8 % (0.0-2.0); Eosinophils % (Auto) 6.7 % (0.0-7.0); Hematocrit 31.7 % (34.1-44.9); Hemoglobin 9.6 g/dL (11.2-15.7); Lymphocytes # (Auto) 2.97 K/mcL (1.50-4.80); Lymphocytes % (Auto) 24.8 % (15.5-49.0); Mean Cell Volume 79.8 fL (80.0-100.0); Mean Corpuscular HGB Conc 30.3 g/dL (31.0-36.0); Mean Platelet Volume 8.9 fL (8.8-12.5); Monocytes # (Auto) 1.22 K/mcL (0.10-0.90); Monocytes % (Auto) 10.2 % (1.0-12.0); Neutrophils % (Auto) 57.2 % (38.0-78.0); Platelet Count 310 K/mcL (140-440); RBC 3.97 M/mcL (3.59-5.38); Red Cell Distribution Width 16.3 % (11.5-14.5)
[2022-08-25 07:16] LABS: ALT/SGPT < 5 U/L (<40); AST/SGOT 16 U/L (<32); Albumin 3.5 gm/dL (3.2-5.2); Albumin/Globulin Ratio 1.5 (1.0-2.3); Alkaline Phosphatase 82 U/L (39-117); Bilirubin,Direct < 0.2 mg/dL (0-0.3); Bilirubin,Total 0.6 mg/dL (0.1-1.0); Blood Urea Nitrogen 16 mg/dL (8-23); Calcium 8.9 mg/dL (8.6-10.4); Carbon Dioxide 28 mmol/L (22-30); Chloride 100 mmol/L (96-108); Globulin 2.4 gm/dL (2.2-3.7); Glomerular Filtration Rate 52; Glucose 114 mg/dL (70-105); Lactate Dehydrogenase 201 U/L (135-225); Phosphorous 4.3 mg/dL (2.5-4.5); Triglycerides 192 mg/dL (<150); Uric Acid 5.6 mg/dL (2.5-8.0)
[2022-08-25] MEDS ORDERED: PANTOPRAZOLE 40 MG VIAL IV SCH (07:30)
--- NOTE | 2022-08-25 07:38 | Internal Med Progress Note ---
SUBJECTIVE Subjective Patient information: Note initiated : 08/25/22 at 7:32 am Service Date, if different from initiated Date: [] Patient: Brigitte Cifuentes a 81 y/o F admitted on 08/24/22 for bleeding. Chief Complaint: [] Interval history: History of present illness: Ms. Cifuentes is a 81 year old F Who presents to the ED with primary blood per rectum. Patient states she is think she has had some bleeding for some time but feels over the past weekend it has increased in per the family they also saw bright red blood in the stool. She is nearly blind so she was I am unable to visualize herself. She does complain of also a significantly increasing weakness. She has some dizziness lightheadedness. She has a chronic cough but says she has a different cough lately does not particularly worse but is deeper and wet and occasionally will cough up thick sputum. She denies out of the normal shortness of breath. She does complain of headaches at times. And is chilled as well at times. She also complains of lower extremity edema which she has had for about a month. She was told by Dr. Marquis's PA that he thought she had CHF and she was being sche duled to see a supervisor customer complaint service. Patient also started on Lasix outpatient In the ED she was found to have a hemoglobin of 7.3 markedly down from her baseline. Stool guaiac was Hemoccult positive. In the ED. Chest x-ray was done which showed some b/l interstitial infiltrates. There was concern for pneumonia patient was started on antibiotics in the ED. Dr. Robert was contacted for the GI bleed who will perform colonoscopy in the morning. In April patient had a transcarotid arterial revascularization by Dr. Marquis. She had previously been on aspirin and Plavix was started in addition at that time. On the discharge instructions patient was to remain on Plavix and aspirin for at least 3 months. 4/4 Leukocytosis slightly worsened. Patient says cough is improving. No shortness of breath at rest. She feels like she is breathing better after she got the Lasix yesterday and the 2 units of red blood cells. several bloody BM's o/n. Undergoing colonoscopy today for lower GI bleed. Patient had good response in hemoglobin with blood transfusion. Review of Systems: Pertinent positives as above. Denies /fever//nausea/vomiting/abdominal pain//dyspnea/diarrhea. Remaining 10 point review of system reviewed negative PHYSICAL EXAM General: Alert, Awake, No acute Distress, obese Eyes/N/T: EOMI, no scleral icterus, Head/Neck: neck supple, full ROM, CV: RRR, No murmurs, Pulm: Fine bibasilar Rales occasional wheeze, no respiratory distress Abd: soft, nontender, +BS x4 Ext: no clubbing/cyanosis, b/l LE 1+ edema, Neuro: Alert, no focal deficits, moves all extremities, sensations intact b/l upper/lower Psychiatric: Skin: warm/dry, normal color Constitutional Vitals: Vital Signs Temp Pulse Resp BP Pulse Ox O2 Del Method O2 Flow Rate 98.9 F 92 H 16 141/52 97 Nasal Cannula 3 08/25/22 03:12 08/25/22 03:12 08/25/22 03:12 08/25/22 03:12 08/25/22 03:12 08/25/22 03:12 08/25/22 03:12 Period Temp Pulse Resp BP Sys/Hanson Pulse Ox O2 Del Method O2 Flow Rate Last 24 Hr 97.2 F-98.9 F 84-94 16-24 123-152/52-76 92-100 Nasal Cannula- Room Air 2-3 Intake and Output 08/24/22 08/25/22 08/25/22 19:59 03:59 11:59 Intake Total 250 1070 Output Total 275 1401 Balance -25 -331 Weight 109.769 kg Intake & Output: Intake & Output 08/24/22 08/25/22 08/25/22 19:59 03:59 11:59 Intake Total 250 1070 Output Total 275 1401 Balance -25 -331 Weight 109.769 kg Intake: IV 250 65 Sodium Chloride 0.9% 250 ml @ 65 20 mls/hr IV .[id number] [facility] Rx#: [id number] Zithromax 500 mg In Dextrose 5% 250 in Water 250 ml @ 250 mls/hr IV ONCE ONE Rx#:[id number] Oral 680 Blood Product 325 Output: Urine Catheter Amount 1050 Void Amount 300 # of times incontinent of urine 1 Stool 275 50 Other: Urine Appearance Clear Urine Color Pale Stool Size Large Stool Color Bright Red Blood Bright Red Blood Dark Red Blood Dark Red Blood Stool Consistency Liquid Liquid Watery # Voids 1 # Bowel Movements 1 1 OBJ DATA Labs 08/25/22 05:56 08/25/22 05:56 Labs: Abnormal Lab Results 08/25/22 08/25/22 08/24/22 05:56 05:56 15:15 WBC 12.0 H RBC Hgb 9.6 L Hct 31.7 L POC Hct MCV 79.8 L MCH 24.2 L MCHC 30.3 L RDW 16.3 H [place] # (Auto) 1.22 H Eos # (Auto) 0.80 H RBC Morphology Hypochromasia Anisocytosis Microcytosis Glucose 114 H POC Glucose POC WB Ioniz Calcium GGT 108 H C-Reactive Protein 1.00 H Triglycerides 192 H Procalcitonin Urine Appearance Urine Protein Urine Occult Blood Ur Leukocyte Esterase Urine RBC Urine WBC Ur Squamous Epith Cells 08/24/22 08/24/22 08/24/22 15:15 14:23 14:21 WBC RBC Hgb Hct POC Hct 25.0 L MCV MCH MCHC RDW [place] # (Auto) Eos # (Auto) RBC Morphology Abnormal A Hypochromasia 3+ A Anisocytosis 1+ A Microcytosis 1+ A Glucose POC Glucose 182 H POC WB Ioniz Calcium 1.14 L GGT C-Reactive Protein Triglycerides Procalcitonin 0.10 H Urine Appearance Urine Protein Urine Occult Blood Ur Leukocyte Esterase Urine RBC Urine WBC Ur Squamous Epith Cells 08/24/22 08/24/22 14:21 13:49 WBC 11.3 H RBC 3.26 L Hgb 7.3 L Hct 26.2 L POC Hct MCV MCH 22.4 L MCHC 27.9 L RDW 16.9 H [place] # (Auto) 1.00 H Eos # (Auto) RBC Morphology Hypochromasia Anisocytosis Microcytosis Glucose POC Glucose POC WB Ioniz Calcium GGT C-Reactive Protein Triglycerides Procalcitonin Urine Appearance Hazy A Urine Protein 30 A Urine Occult Blood >=1.0 A Ur Leukocyte Esterase 250 A Urine RBC 56 H Urine WBC 89 H Ur Squamous Epith Cells 5 H Meds: Medications Acetaminophen (Acetaminophen 325 Mg Tablet) 650 mg PO Q6HP PRN; Protocol PRN Reason: Per Pain Protocol/Fever > 101 Last Admin: 08/24/22 21:23 Dose: 650 mg Albuterol/Ipratropium (Ipratropium/Albuterol 3 Ml Ampul.Neb) 3 ml NEB Q4HP PRN PRN Reason: Shortness Of Breath Amlodipine Besylate (Amlodipine 5 Mg Tablet) 5 mg PO QDAY [facility] Atorvastatin Calcium (Atorvastatin 40 Mg Tablet) 40 mg PO QHS [facility] Last Admin: 08/24/22 21:26 Dose: Not Given Carbidopa/Levodopa (Carbidopa/Levodopa Cr 25/100 Tablet) 2 tab PO QID [facility] Last Admin: 08/24/22 21:25 Dose: Not Given Dextrose (Dextrose 50% 50 Ml Vial) 0 ml IV UD PRN PRN Reason: Per Sliding Scale Diagnostic Test (Pha) (Accu-Chek 1 Each Strip) 1 each FS [facility] Last Admin: 08/24/22 21:01 Dose: Not Given Fluoxetine HCl (Fluoxetine Hcl 20 Mg Capsule) 60 mg PO DAILY [facility]IVIAN Furosemide (Furosemide 20 Mg Tablet) 20 mg PO QDAY [facility] Gabapentin (Gabapentin 100 Mg Capsule) 100 mg PO TID [facility] Last Admin: 08/24/22 22:48 Dose: 100 mg Glucose (Dextrose 31 Gm Oral.Susp) 15 gm PO PRN PRN PRN Reason: Hypoglycemia Potassium Chloride 40 meq/ (Dextrose) 520 mls @ 130 mls/hr IV UD PRN PRN Reason: Potassium < 3 Magnesium Sulfate (Magnesium Sulfate) 2 gm in 50 mls @ 50 mls/hr IV UD PRN PRN Reason: Magnesium </= 1.6 Insulin Human Lispro (Insulin Lispro 1 Unit/0.01 Ml Unit) 0 unit SQ [facility]; Protocol Last Admin: 08/24/22 21:14 Dose: Not Given Omeprazole (Omeprazole 20 Mg Capsule) 20 mg PO QDAY [facility] Ondansetron HCl (Ondansetron 4 Mg/2 Ml Vial) 4 mg IV Q4HP PRN PRN Reason: Nausea And Vomiting Pantoprazole Sodium (Pantoprazole 40 Mg Vial) 40 mg IV QAMAC [facility] Budesonide- Formoterol 10.2 Gm Hfa Aerosol Inhaler 1 dose INH BID [facility] Vibegron [Gemtesa] (75 Mg Tablet) 1 dose PO QDAY [facility] Polyethylene Glycol (Polyethylene Glycol 3350 17 Gm Packet) 17 gm PO DAILYP PRN PRN Reason: Constipation Potassium Chloride (Potassium Chloride 20 Meq Tablet) 40 meq PO UD PRN PRN Reason: Potssium is 3-3.5 Potassium Chloride (Potassium Chloride 20 Meq Tablet) 40 meq PO UD PRN PRN Reason: Potassium < 3 Ropinirole HCl (Ropinirole 1 Mg Tablet) 1 mg PO TID [facility] Last Admin: 08/24/22 21:26 Dose: Not Given Senna (Sennosides 1 Tablet) 2 tab PO DAILYP PRN PRN Reason: Constipation Sodium Chloride (0.9 % Sodium Chloride 10 Ml Syringe) 10 ml IV Q8 [facility] Last Admin: 08/25/22 05:32 Dose: 10 ml A/P Narrative A/P Narrative: A: *GIB, lower: *Symptomatic acute blood loss anemia on chronic: 06/25 above -good response to 2prbc on 08/24 *Peripheral edema: pt being sent to see cardiology outpt -pt had an echo last year with good EF and grade I diastolic dysfxn, -bnp low *Generalized weakness/deconditioning: *Carotid aa dz: pt had right IC revascularization by Dr. Marquis last April and Plavix was added to her aspirin for which she was supposed to be on both for at least 3 months. *b/l infiltrates acute on chronic diastolic CHF vs PNA: -strep/flu/rsv/covid neg -leukocytosis -LE edema, bnp low but may be falsely low in obesity *DM2 w/neuropathy: cont dhaval *CKD IIIb: *COPD (2L@ home), chronic respiratory failure: *Parkinson disease: Continue Sinemet *HTN: *Depression: Continue SSRI *GERD: *Obesity: BMI 36 * P: -Dr. Du for endoscopy -monitor H&H -hold asa/plavix for now and likely only needs to be on one going forward -pending myco -prn IV lasix will give today and f/u cxr, cont home PO lasix -home IH's and supp O2 -ssi -cont norvasc -PT/OT -CM for placement needs -ppx: SCD / home ppi Time Spent With Patient Time: Total time spent is greater than 50% in coordination of care (as documented) at patient's floor/unit and/or counseling patient: Subsequent: Total time with patient: 50 - 65 Minutes QUALITY VTE Deep Vein Thrombosis/Pulmonary Embolism Present on Admission: No
[2022-08-25] MEDS: INSULIN LISPRO 1 UNIT/0.01 ML UNIT SQ SCH ×4 (07:42→20:26)
[2022-08-25] MEDS: cefTRIAXone 1 GM VIAL IV SCH (07:45)
[2022-08-25] MEDS ORDERED: GABAPENTIN 100 MG CAPSULE PO SCH (09:00)
[2022-08-25] MEDS ORDERED: FUROSEMIDE 40 MG/4 ML VIAL IV ONE (09:15)
[2022-08-25] MEDS: OMEPRAZOLE 20 MG CAPSULE PO SCH (09:15)
[2022-08-25] MEDS: GABAPENTIN 100 MG CAPSULE PO SCH ×3 (09:28→20:26)
[2022-08-25] MEDS: rOPINIRole 1 MG TABLET PO SCH ×3 (09:28→20:26)
[2022-08-25] MEDS: FUROSEMIDE 20 MG TABLET PO SCH (09:28)
[2022-08-25] MEDS: amLODIPine 5 MG TABLET PO SCH (09:28)
[2022-08-25] MEDS: CARBIDOPA/LEVODOPA CR 25/100 TABLET PO SCH ×4 (09:28→20:26)
[2022-08-25] MEDS: FLUoxetine HCL 20 MG CAPSULE PO SCH (09:28)
[2022-08-25] MEDS: Budesonide-Formoterol 10.2 GM HFA aerosol inhaler INH SCH ×2 (09:28→20:27)
[2022-08-25] MEDS ORDERED: AZITHROMYCIN 500 MG in DEXTROSE 5% IN WATER 250 ML IV ONE (10:00)
[2022-08-25] MEDS ORDERED: PEG 3350/NA SULF,BICARB,CL/KCL 4,000 ML ORAL.SOL PO ONE ×2 (10:12→10:40)
--- NOTE | 2022-08-25 11:31 | Discharge Summary ---
Discharge Provider Provider IMPORTANT FOLLOW-UP INFORMATION FOR PCP: Patient information: Note initiated : 08/25/22 at 11:30 am Service Date, if different from initiated Date: [] Patient: Brigitte Cifuentes 81 y/o F admitted on 08/24/22 for bleeding. Chief Complaint: [] Date of admission: 08/24/22 17:21 Discharge date: 08/26/22 Primary care physician: Yee Robert Consults: 08/24/22 Consult to Physician [CONS] Stat Comment: Consulting Provider: Morris Payton Reason For Exam: Physician to Consult Consult to Physician [CONS] Stat Comment: Consulting Provider: Earl Du Reason For Exam: Physician to Consult COURSE Hospital Course Hospital course: History of present illness: Ms. Cifuentes is a 81 year old F Who presents to the ED with primary blood per rectum. Patient states she is think she has had some bleeding for some time but feels over the past weekend it has increased in per the family they also saw bright red blood in the stool. She is nearly blind so she was I am unable to visualize herself. She does complain of also a significantly increasing weakness. She has some dizziness lightheadedness. She has a chronic cough but says she has a different cough lately does not particularly worse but is deeper and wet and occasionally will cough up thick sputum. She denies out of the normal shortness of breath. She does complain of headaches at times. And is chilled as well at times. She also complains of lower extremity edema which she has had for about a month. She was told by Dr. Marquis's PA that he thought she had CHF and she was being schedu led to see a manager gyn. Patient also started on Lasix outpatient In the ED she was found to have a hemoglobin of 7.3 markedly down from her baseline. Stool guaiac was Hemoccult positive. In the ED. Chest x-ray was done which showed some b/l interstitial infiltrates. There was concern for pneumonia patient was started on antibiotics in the ED. Dr. Robert was contacted for the GI bleed who will perform colonoscopy in the morning. In April patient had a transcarotid arterial revascularization by Dr. Marquis. She had previously been on aspirin and Plavix was started in addition at that t sarah. On the discharge instructions patient was to remain on Plavix and aspirin for at least 3 months. 4/4 Leukocytosis slightly worsened. Patient says cough is improving. No shortness of breath at rest. She feels like she is breathing better after she got the Lasix yesterday and the 2 units of red blood cells. several bloody BM's o/n. Undergoing colonoscopy today for lower GI bleed. Patient had good response in hemoglobin with blood transfusion. *per Dr. Du. Multiple diverticuli were found. The culprit lesion was not found. No active bleeding on endoscopy. Per Dr. Du, pt can resume plavix but stay off of aspirin. A: *GIB, lower: 2/2 diverticulosis *Symptomatic acute blood loss anemia on chronic: 2/2 above *Peripheral edema: pt being sent to see cardiology outpt -pt had an echo last year with good EF and grade I diastolic dysfxn, *Generalized weakness/deconditioning: *Carotid aa dz: pt had right IC revascularization by Dr. Marquis last April and Plavix was added to her aspirin for which she was supposed to be on both for at least 3 months. *b/l infiltrates acute on chronic diastolic CHF vs PNA: *DM2 w/neuropathy: cont dhaval *CKD IIIb: *COPD (2L@ home), chronic respiratory failure: *Parkinson disease: Continue Sinemet *HTN: *Depression: Continue SSRI *GERD: *Obesity: BMI 36 * P: -cont plavix, stop asa Discharge diagnosis: GI bleed symptomatic anemia peripheral edema pulmonary infiltrates Secondary discharge diagnosis: Generalized weakness deconditioning carotid disease diabetes chronic kidney disease COPD Parkinson's hypertension depression GERD obesity Time Spent with Patient Time attestation: Total time spent providing and/or coordinating discharge services: Time spent: Greater than 30 minutes EXAM Constitutional Vitals: Temp Pulse Resp BP Pulse Ox O2 Del Method O2 Flow Rate 98.9 F 87 16 132/56 96 Nasal Cannula 3 08/25/22 07:36 08/25/22 07:36 08/25/22 03:12 08/25/22 07:36 08/25/22 07:36 08/25/22 07:55 08/25/22 07:55 Discharge Data Data Completed and Pending Labs on day of discharge: Labs from last 24 hours 08/25/22 08/25/22 08/24/22 05:56 05:56 17:29 WBC 12.0 H RBC 3.97 Hgb 9.6 L Hct 31.7 L POC Hct MCV 79.8 L MCH 24.2 L MCHC 30.3 L RDW 16.3 H Plt Count 310 MPV 8.9 Immature Gran % (Auto) 0.3 Neut % (Auto) 57.2 Lymph % (Auto) 24.8 [place] % (Auto) 10.2 Eos % (Auto) 6.7 Baso % (Auto) 0.8 Lymph # (Auto) 2.97 [place] # (Auto) 1.22 H Eos # (Auto) 0.80 H Baso # (Auto) 0.09 Seg Neutrophils % Band Neutrophils % Lymphocytes % Monocytes % (Manual) Eosinophils % (Manual) Immature Gran # 0.04 Absolute Neutrophils 6.87 Platelet Estimate RBC Morphology Hypochromasia Anisocytosis Microcytosis POC Sodium Sodium 140 POC Potassium Potassium 4.0 POC Chloride Chloride 100 Carbon Dioxide 28 POC Total CO2 Anion Gap 12.0 POC BUN BUN 16 Creatinine 1.0 POC Creatinine GFR Calculation 52 Glucose 114 H POC Glucose Uric Acid 5.6 Calcium 8.9 POC WB Ioniz Calcium Phosphorus 4.3 Magnesium 2.0 Total Bilirubin 0.6 Direct Bilirubin < 0.2 GGT 108 H AST 16 ALT < 5 Alkaline Phosphatase 82 Lactate Dehydrogenase 201 C-Reactive Protein NT-Pro-B Natriuret Pep Total Protein 5.9 Albumin 3.5 Globulin 2.4 Albumin/Globulin Ratio 1.5 Triglycerides 192 H Procalcitonin Urine Color Urine Appearance Urine pH Ur Specific [place] Urine Protein Urine Glucose (UA) Urine Ketones Urine Occult Blood Urine Nitrate Urine Bilirubin Urine Urobilinogen Ur Leukocyte Esterase Urine RBC Urine WBC Ur Squamous Epith Cells Urine Bacteria Ur Culture Indicated? Mycoplasma pneumon IgG Mycoplasma pneumon IgM Ur Strep pneumoniae Ag Negative POC Troponin I 08/24/22 08/24/22 08/24/22 17:29 15:15 15:15 WBC RBC Hgb Hct POC Hct MCV MCH MCHC RDW Plt Count MPV Immature Gran % (Auto) Neut % (Auto) Lymph % (Auto) [place] % (Auto) Eos % (Auto) Baso % (Auto) Lymph # (Auto) [place] # (Auto) Eos # (Auto) Baso # (Auto) Seg Neutrophils % Band Neutrophils % Lymphocytes % Monocytes % (Manual) Eosinophils % (Manual) Immature Gran # Absolute Neutrophils Platelet Estimate RBC Morphology Hypochromasia Anisocytosis Microcytosis POC Sodium Sodium POC Potassium Potassium POC Chloride Chloride Carbon Dioxide POC Total CO2 Anion Gap POC BUN BUN Creatinine POC Creatinine GFR Calculation Glucose POC Glucose Uric Acid Calcium POC WB Ioniz Calcium Phosphorus Magnesium Total Bilirubin Direct Bilirubin GGT AST ALT Alkaline Phosphatase Lactate Dehydrogenase C-Reactive Protein 1.00 H NT-Pro-B Natriuret Pep Total Protein Albumin Globulin Albumin/Globulin Ratio Triglycerides Procalcitonin 0.10 H Urine Color Urine Appearance Urine pH Ur Specific [place] Urine Protein Urine Glucose (UA) Urine Ketones Urine Occult Blood Urine Nitrate Urine Bilirubin Urine Urobilinogen Ur Leukocyte Esterase Urine RBC Urine WBC Ur Squamous Epith Cells Urine Bacteria Ur Culture Indicated? Mycoplasma pneumon IgG Pending Mycoplasma pneumon IgM Pending Ur Strep pneumoniae Ag POC Troponin I 08/24/22 08/24/22 08/24/22 15:00 14:26 14:23 WBC RBC Hgb Hct POC Hct 25.0 L MCV MCH MCHC RDW Plt Count MPV Immature Gran % (Auto) Neut % (Auto) Lymph % (Auto) [place] % (Auto) Eos % (Auto) Baso % (Auto) Lymph # (Auto) [place] # (Auto) Eos # (Auto) Baso # (Auto) Seg Neutrophils % Band Neutrophils % Lymphocytes % Monocytes % (Manual) Eosinophils % (Manual) Immature Gran # Absolute Neutrophils Platelet Estimate RBC Morphology Hypochromasia Anisocytosis Microcytosis POC Sodium 137 Sodium POC Potassium 4.3 Potassium POC Chloride 101 Chloride Carbon Dioxide POC Total CO2 26.0 Anion Gap POC BUN 20 BUN Creatinine POC Creatinine 1.2 GFR Calculation Glucose POC Glucose 182 H Uric Acid Calcium POC WB Ioniz Calcium 1.14 L Phosphorus Magnesium Total Bilirubin Direct Bilirubin GGT AST ALT Alkaline Phosphatase Lactate Dehydrogenase C-Reactive Protein NT-Pro-B Natriuret Pep 117.9 Total Protein Albumin Globulin Albumin/Globulin Ratio Triglycerides Procalcitonin Urine Color Urine Appearance Urine pH Ur Specific [place] Urine Protein Urine Glucose (UA) Urine Ketones Urine Occult Blood Urine Nitrate Urine Bilirubin Urine Urobilinogen Ur Leukocyte Esterase Urine RBC Urine WBC Ur Squamous Epith Cells Urine Bacteria Ur Culture Indicated? Mycoplasma pneumon IgG Mycoplasma pneumon IgM Ur Strep pneumoniae Ag POC Troponin I < 0.02 08/24/22 08/24/22 08/24/22 14:21 14:21 13:49 WBC 11.3 H RBC 3.26 L Hgb 7.3 L Hct 26.2 L POC Hct MCV 80.4 MCH 22.4 L MCHC 27.9 L RDW 16.9 H Plt Count 329 MPV 9.2 Immature Gran % (Auto) 0.3 Neut % (Auto) 55.4 Lymph % (Auto) 28.7 [place] % (Auto) 8.9 Eos % (Auto) 5.9 Baso % (Auto) 0.8 Lymph # (Auto) 3.24 [place] # (Auto) 1.00 H Eos # (Auto) 0.67 Baso # (Auto) 0.09 Seg Neutrophils % 45 Band Neutrophils % 5 Lymphocytes % 33 Monocytes % (Manual) 11 Eosinophils % (Manual) 6 Immature Gran # 0.03 Absolute Neutrophils 6.25 Platelet Estimate Normal RBC Morphology Abnormal A Hypochromasia 3+ A Anisocytosis 1+ A Microcytosis 1+ A POC Sodium Sodium POC Potassium Potassium POC Chloride Chloride Carbon Dioxide POC Total CO2 Anion Gap POC BUN BUN Creatinine POC Creatinine GFR Calculation Glucose POC Glucose Uric Acid Calcium POC WB Ioniz Calcium Phosphorus Magnesium Total Bilirubin Direct Bilirubin GGT AST ALT Alkaline Phosphatase Lactate Dehydrogenase C-Reactive Protein NT-Pro-B Natriuret Pep Total Protein Albumin Globulin Albumin/Globulin Ratio Triglycerides Procalcitonin Urine Color Yellow Urine Appearance Hazy A Urine pH 6.0 Ur Specific [place] 1.011 Urine Protein 30 A Urine Glucose (UA) Negative Urine Ketones Negative Urine Occult Blood >=1.0 A Urine Nitrate Negative Urine Bilirubin Negative Urine Urobilinogen Negative Ur Leukocyte Esterase 250 A Urine RBC 56 H Urine WBC 89 H Ur Squamous Epith Cells 5 H Urine Bacteria None Ur Culture Indicated? No Mycoplasma pneumon IgG Mycoplasma pneumon IgM Ur Strep pneumoniae Ag POC Troponin I Preliminary micro results at discharge 08/25/22 00:49 Gram Stain - Preliminary Sputum source - Induced Discharge Plan Patient/Caregiver Discharge Instructions Activity: increase activity as tolerated Diet: Consistent Carbohydrate Prescriptions: New clopidogrel [Plavix] 75 mg tablet 75 mg PO QDAY Qty: 1 0RF Continued carbidopa-levodopa 50-200 mg tablet extended release 1 tab PO QID hydrocortisone 2.5 % cream 1 applic TOPICAL BID PRN (Reason: unknown) ropinirole 1 mg tablet 1 mg PO TID Cholestyramine Light 4 gram powder PO TID PRN (Reason: unknown) loratadine 10 mg tablet 10 mg PO QDAY fluoxetine 60 mg tablet 60 mg PO QDAY acetaminophen 325 mg capsule 500 mg PO Q6H PRN (Reason: Pain, Moderate) omeprazole 20 mg capsule,delayed release(DR/EC) 20 mg PO QDAY Trulicity 0.75 mg/0.5 mL pen injector 0.75 mg SUB-Q QWEEK magnesium 250 mg tablet 500 mg PO QDAY albuterol sulfate 1 PUFF inhaler 2 puff INH BID PRN (Reason: shortness of breath) budesonide-formoterol 10.2 GM HFA aerosol inhaler 10.2 gm IH BID atorvastatin 40 mg Tablet 40 mg PO QHS potassium chloride 10 mEq Tablet Extended Release 10 meq PO QDAY MDD 5-day course. 3 days left amlodipine 5 mg Tablet 5 mg PO QDAY furosemide [Lasix] 20 mg Tablet 20 mg PO QDAY minocycline 50 mg Tablet 50 mg PO QDAY Gemtesa 75 mg Tablet 75 mg PO QDAY gabapentin 100 mg Capsule 100 mg PO TID polyethylene glycol 3350 [Miralax] 17 gram/dose powder 17 g PO QDAY PRN (Reason: constipation) Qty: 119 0RF Rx Instructions: use as directed Discontinued clopidogrel 75 mg tablet 75 mg PO QDAY aspirin 81 mg tablet,delayed release (DR/EC) 81 mg PO QAM Follow Up Plan Follow up with: Yee Robert ARNP [Primary Care Provider] - Patient Disposition: Home, Self-Care Prognosis: Fair Overall status at discharge: patient is progressing back to baseline Discharge Orders: Discharge Order (Routine); Ordered 08/26/22 Ordered By: Morris Payton [facility] Deep Vein Thrombosis/Pulmonary Embolism Present on Admission: No
[2022-08-25] MEDS ORDERED: PROPOFOL 200 MG/20 ML VIAL IV SCH (14:00)
[2022-08-25] MEDS ORDERED: MIDAZOLAM 2 MG/2 ML VIAL IV SCH (14:00)
[2022-08-25] MEDS: IPRATROPIUM/ALBUTEROL 3 ML AMPUL.NEB NEB SCH ×2 (15:00→21:36)
[2022-08-25] MEDS: ATORVASTATIN 40 MG TABLET PO SCH (20:26)
[2022-08-25] MEDS: ACETAMINOPHEN 325 MG TABLET PO PRN (20:26)
[2022-08-26] MEDS: ACETAMINOPHEN 325 MG TABLET PO PRN ×3 (02:34→20:23)
[2022-08-26] MEDS: IPRATROPIUM/ALBUTEROL 3 ML AMPUL.NEB NEB SCH ×3 (05:26→21:12)
[2022-08-26] MEDS: 0.9 % SODIUM CHLORIDE 10 ML SYRINGE IV SCH ×3 (05:26→20:24)
--- NOTE | 2022-08-26 06:22 | XRay Report ---
INDICATION: f/u infiltrate, edema vs pna/atelectasis TECHNIQUE: AP portable semiupright chest x-ray COMPARISON: Previous chest x-ray dated 08/24/2022 FINDINGS: Lungs:Lungs are negative and improved since previous examination. No focal or diffuse infiltrates. Heart, vascular:No significant cardiomegaly. Pulmonary vascularity is normal. No pulmonary edema or pulmonary congestion Mediastinum, josette:No mediastinal widening. No hilar mass Pleura:No pleural fluid. No pleural-based mass or calcification Skeletal:Negative. IMPRESSION: Improved chest x-ray Interpreted and Authenticated by: Jose Pedersen 08/26/22
[2022-08-26 07:00] LABS: Basophils % (Auto) 0.7 % (0.0-2.0); Eosinophils # (Auto) 0.71 K/mcL (0.00-0.70); Eosinophils % (Auto) 5.1 % (0.0-7.0); Hematocrit 32.1 % (34.1-44.9); Hemoglobin 9.5 g/dL (11.2-15.7); Lymphocytes # (Auto) 3.01 K/mcL (1.50-4.80); Lymphocytes % (Auto) 21.4 % (15.5-49.0); Mean Cell Volume 80.7 fL (80.0-100.0); Mean Corpuscular HGB Conc 29.6 g/dL (31.0-36.0); Mean Platelet Volume 9.4 fL (8.8-12.5); Neutrophils % (Auto) 62.3 % (38.0-78.0); Platelet Count 340 K/mcL (140-440); RBC 3.98 M/mcL (3.59-5.38); Red Cell Distribution Width 16.9 % (11.5-14.5)
[2022-08-26 07:28] LABS: ALT/SGPT < 5 U/L (<40); AST/SGOT 18 U/L (<32); Albumin 3.4 gm/dL (3.2-5.2); Albumin/Globulin Ratio 1.2 (1.0-2.3); Alkaline Phosphatase 88 U/L (39-117); Bilirubin,Direct < 0.2 mg/dL (0-0.3); Bilirubin,Total 0.2 mg/dL (0.1-1.0); Blood Urea Nitrogen 16 mg/dL (8-23); Calcium 8.6 mg/dL (8.6-10.4); Carbon Dioxide 28 mmol/L (22-30); Chloride 96 mmol/L (96-108); Globulin 2.8 gm/dL (2.2-3.7); Glomerular Filtration Rate 42; Glucose 158 mg/dL (70-105); Lactate Dehydrogenase 225 U/L (135-225); Triglycerides 179 mg/dL (<150)
[2022-08-26] MEDS: CARBIDOPA/LEVODOPA CR 25/100 TABLET PO SCH ×4 (10:02→20:24)
[2022-08-26] MEDS: rOPINIRole 1 MG TABLET PO SCH ×3 (10:02→20:23)
[2022-08-26] MEDS: FLUoxetine HCL 20 MG CAPSULE PO SCH (10:02)
[2022-08-26] MEDS: GABAPENTIN 100 MG CAPSULE PO SCH ×3 (10:03→20:23)
[2022-08-26] MEDS: cefTRIAXone 1 GM VIAL IV SCH (10:03)
[2022-08-26] MEDS: OMEPRAZOLE 20 MG CAPSULE PO SCH (10:03)
[2022-08-26] MEDS: amLODIPine 5 MG TABLET PO SCH (10:03)
[2022-08-26] MEDS: FUROSEMIDE 20 MG TABLET PO SCH (10:03)
[2022-08-26] MEDS: Budesonide-Formoterol 10.2 GM HFA aerosol inhaler INH SCH (10:09)
[2022-08-26] MEDS: INSULIN LISPRO 1 UNIT/0.01 ML UNIT SQ SCH ×4 (10:21→20:23)
--- NOTE | 2022-08-26 11:20 | Colonoscopy Procedure Note ---
Colonoscopy Procedure Notes Procedure Information Patient information: Note initiated : 08/26/22 at 11:14 am Patient: Brigitte Cifuentes 81 y/o F admitted on 08/24/22 for bleeding. Date of Procedure: 08/25/22 Pre-op diagnosis general: Anemia, bright red blood per rectum Post-op diagnosis: Resolved diverticular bleed, ascending colon polyp Procedure: Colonoscopy with Bx Procedure narrative: The procedure, alternatives and risks were discussed with the patient and the patient's questions were answered. With endoscopist administered intravenous sedation, the Olympus colonoscope was introduced into the rectum and advanced to the cecum. Ileocecal valve was identified. Colon was long and redundant. Colonic polyps were seen in the ascending colon. The polyp was removed with biopsy snare technique. Polyp was retrieved for histological examination. Diverticula appear uncomplicated. Anesthesia: conscious sedation Findings: Resolved diverticular bleed, ascending colon polyp Complications: none Surgeon: Earl Du Estimated blood loss: 0 Tourniquet Time (Minutes): 0 Specimens Removed/Pathology: other (ascending colon polyp) Condition: stable Disposition: same day Assessment: Resolved diverticular bleed, ascending colon polyp
--- NOTE | 2022-08-26 11:33 | Internal Med Progress Note ---
SUBJECTIVE Subjective Patient information: Note initiated : 08/26/22 at 11:27 am Service Date, if different from initiated Date: [] Patient: Brigitte Cifuentes a 81 y/o F admitted on 08/24/22 for bleeding. Chief Complaint: [] Interval history: History of present illness: Ms. Cifuentes is a 81 year old F Who presents to the ED with primary blood per rectum. Patient states she is think she has had some bleeding for some time but feels over the past weekend it has increased in per the family they also saw bright red blood in the stool. She is nearly blind so she was I am unable to visualize herself. She does complain of also a significantly increasing weakness. She has some dizziness lightheadedness. She has a chronic cough but says she has a different cough lately does not particularly worse but is deeper and wet and occasionally will cough up thick sputum. She denies out of the normal shortness of breath. She does complain of headaches at times. And is chilled as well at times. She also complains of lower extremity edema which she has had for about a month. She was told by Dr. Marquis's PA that he thought she had CHF and she was being anitra eduled to see a ad writer. Patient also started on Lasix outpatient In the ED she was found to have a hemoglobin of 7.3 markedly down from her baseline. Stool guaiac was Hemoccult positive. In the ED. Chest x-ray was done which showed some b/l interstitial infiltrates. There was concern for pneumonia patient was started on antibiotics in the ED. Dr. Robert was contacted for the GI bleed who will perform colonoscopy in the morning. In April patient had a transcarotid arterial revascularization by Dr. Marquis. She had previously been on aspirin and Plavix was started in addition at that time. On the discharge instructions patient was to remain on Plavix and aspirin for at least 3 months. 4/4 Leukocytosis slightly worsened. Patient says cough is improving. No shortness of breath at rest. She feels like she is breathing better after she got the Lasix yesterday and the 2 units of red blood cells. several bloody BM's o/n. Undergoing colonoscopy today for lower GI bleed. Patient had good response in hemoglobin with blood transfusion. *per Dr. Du. Multiple diverticuli were found. The culprit lesion was not found. No active bleeding on endoscopy. Per Dr. Du, pt can resume plavix but stay off of aspirin. 4/5 Patient feeling better. Hemoglobin stable. Seen by physical therapy and patient is too high risk and weak to go home alone. She needs retirement facility. Good urine output yesterday after Lasix and patient states she is breathing fine. Review of Systems: Pertinent positives as above. Denies /fever//nausea/vomiting/abdominal pain//dyspnea/diarrhea. Remaining 10 point review of system reviewed negative PHYSICAL EXAM General: Alert, Awake, No acute Distress, obese Eyes/N/T: EOMI, no scleral icterus, Head/Neck: neck supple, full ROM, CV: RRR, No murmurs, Pulm: Fine bibasilar Rales, no wheezing, no respiratory distress Abd: soft, nontender, +BS x4 Ext: no clubbing/cyanosis, b/l LE 1+ edema, Neuro: Alert, no focal deficits, moves all extremities, sensations intact b/l upper/lower Psychiatric: Skin: warm/dry, normal color Constitutional Vitals: Vital Signs Temp Pulse Resp BP Pulse Ox O2 Del Method O2 Flow Rate 98.1 F 85 18 108/59 90 Nasal Cannula 2 08/26/22 07:54 08/26/22 07:54 08/26/22 07:54 08/26/22 07:54 08/26/22 07:54 08/26/22 07:54 08/26/22 07:54 Period Temp Pulse Resp BP Sys/Hanson Pulse Ox O2 Del Method O2 Flow Rate Last 24 Hr 97.4 F-100.3 F 76-96 14-36 90-144/36-68 87-99 Nasal Cannula- Room Air 2-2.5 Intake and Output 08/25/22 08/26/22 08/26/22 19:59 03:59 11:59 Intake Total 1920 200 360 Output Total 1800 600 Balance 120 -400 360 Weight 108.046 kg Intake & Output: Intake & Output 08/25/22 08/26/22 08/26/22 19:59 03:59 11:59 Intake Total 1920 200 360 Output Total 1800 600 Balance 120 -400 360 Weight 108.046 kg Intake: Oral 1920 200 360 Output: Urine Catheter Amount 600 Void Amount 900 Urine/Stool Mix 900 Other: Meal Dinner Breakfast Percent of Meal Consumed 100% 100% Feeding Ability Independent Urine Appearance Clear Purewick Clear Urine Color Yellow Yellow Purewick Yellow Urine Odor Normal Foul Stool Size Large Stool Consistency Liquid Watery Ivania Loose # Bowel Movements 0 # of times incontinent of 1 Bowels OBJ DATA Labs 08/26/22 05:45 08/26/22 05:45 Labs: Abnormal Lab Results 08/26/22 08/26/22 08/25/22 05:45 05:45 05:56 WBC 14.0 H RBC Hgb 9.5 L Hct 32.1 L POC Hct MCV MCH 23.9 L MCHC 29.6 L RDW 16.9 H [place] # (Auto) 1.40 H Eos # (Auto) 0.71 H Immature Gran # 0.07 H Absolute Neutrophils 8.75 H RBC Morphology Hypochromasia Anisocytosis Microcytosis Creatinine 1.2 H Glucose 158 H 114 H POC Glucose POC WB Ioniz Calcium GGT 105 H 108 H C-Reactive Protein Triglycerides 179 H 192 H Procalcitonin Urine Appearance Urine Protein Urine Occult Blood Ur Leukocyte Esterase Urine RBC Urine WBC Ur Squamous Epith Cells 08/25/22 08/24/22 08/24/22 05:56 15:15 15:15 WBC 12.0 H RBC Hgb 9.6 L Hct 31.7 L POC Hct MCV 79.8 L MCH 24.2 L MCHC 30.3 L RDW 16.3 H [place] # (Auto) 1.22 H Eos # (Auto) 0.80 H Immature Gran # Absolute Neutrophils RBC Morphology Hypochromasia Anisocytosis Microcytosis Creatinine Glucose POC Glucose POC WB Ioniz Calcium GGT C-Reactive Protein 1.00 H Triglycerides Procalcitonin 0.10 H Urine Appearance Urine Protein Urine Occult Blood Ur Leukocyte Esterase Urine RBC Urine WBC Ur Squamous Epith Cells 08/24/22 08/24/22 08/24/22 14:23 14:21 14:21 WBC 11.3 H RBC 3.26 L Hgb 7.3 L Hct 26.2 L POC Hct 25.0 L MCV MCH 22.4 L MCHC 27.9 L RDW 16.9 H [place] # (Auto) 1.00 H Eos # (Auto) Immature Gran # Absolute Neutrophils RBC Morphology Abnormal A Hypochromasia 3+ A Anisocytosis 1+ A Microcytosis 1+ A Creatinine Glucose POC Glucose 182 H POC WB Ioniz Calcium 1.14 L GGT C-Reactive Protein Triglycerides Procalcitonin Urine Appearance Urine Protein Urine Occult Blood Ur Leukocyte Esterase Urine RBC Urine WBC Ur Squamous Epith Cells 08/24/22 13:49 WBC RBC Hgb Hct POC Hct MCV MCH MCHC RDW [place] # (Auto) Eos # (Auto) Immature Gran # Absolute Neutrophils RBC Morphology Hypochromasia Anisocytosis Microcytosis Creatinine Glucose POC Glucose POC WB Ioniz Calcium GGT C-Reactive Protein Triglycerides Procalcitonin Urine Appearance Hazy A Urine Protein 30 A Urine Occult Blood >=1.0 A Ur Leukocyte Esterase 250 A Urine RBC 56 H Urine WBC 89 H Ur Squamous Epith Cells 5 H Meds: Medications Acetaminophen (Acetaminophen 325 Mg Tablet) 650 mg PO Q6HP PRN; Protocol PRN Reason: Per Pain Protocol/Fever > 101 Last Admin: 08/26/22 10:02 Dose: 650 mg Albuterol/Ipratropium (Ipratropium/Albuterol 3 Ml Ampul.Neb) 3 ml NEB Q8 [facility] Last Admin: 08/26/22 05:26 Dose: Not Given Amlodipine Besylate (Amlodipine 5 Mg Tablet) 5 mg PO QDAY [facility] Last Admin: 08/26/22 10:03 Dose: 5 mg Atorvastatin Calcium (Atorvastatin 40 Mg Tablet) 40 mg PO QHS [facility] Last Admin: 08/25/22 20:26 Dose: 40 mg Carbidopa/Levodopa (Carbidopa/Levodopa Cr 25/100 Tablet) 2 tab PO QID [facility] Last Admin: 08/26/22 10:02 Dose: 2 tab Ceftriaxone Sodium (Ceftriaxone 1 Gm Vial) 1 gm IV Q24H ANITRA; Protocol Last Admin: 08/26/22 10:03 Dose: 1 gm Dextrose (Dextrose 50% 50 Ml Vial) 0 ml IV UD PRN PRN Reason: Per Sliding Scale Diagnostic Test (Pha) (Accu-Chek 1 Each Strip) 1 each FS ACHS [facility] Last Admin: 08/26/22 08:06 Dose: 1 each Fluoxetine HCl (Fluoxetine Hcl 20 Mg Capsule) 60 mg PO DAILY [facility] Last Admin: 08/26/22 10:02 Dose: 60 mg Furosemide (Furosemide 20 Mg Tablet) 20 mg PO QDAY [facility] Last Admin: 08/26/22 10:03 Dose: 20 mg Gabapentin (Gabapentin 100 Mg Capsule) 100 mg PO TID [facility] Last Admin: 04/05/23 10:03 Dose: 100 mg Glucose (Dextrose 31 Gm Oral.Susp) 15 gm PO PRN PRN PRN Reason: Hypoglycemia Potassium Chloride 40 meq/ (Dextrose) 520 mls @ 130 mls/hr IV UD PRN PRN Reason: Potassium < 3 Magnesium Sulfate (Magnesium Sulfate) 2 gm in 50 mls @ 50 mls/hr IV UD PRN PRN Reason: Magnesium </= 1.6 Insulin Human Lispro (Insulin Lispro 1 Unit/0.01 Ml Unit) 0 unit SQ ACHS [facility]; Protocol Last Admin: 08/26/22 10:21 Dose: 2 units Omeprazole (Omeprazole 20 Mg Capsule) 20 mg PO QDAY [facility] Last Admin: 08/26/22 10:03 Dose: 20 mg Ondansetron HCl (Ondansetron 4 Mg/2 Ml Vial) 4 mg IV Q4HP PRN PRN Reason: Nausea And Vomiting Last Admin: 08/25/22 11:51 Dose: 4 mg Budesonide- Formoterol 10.2 Gm Hfa Aerosol Inhaler 1 dose INH BID [facility] Last Admin: 08/26/22 10:09 Dose: Not Given Vibegron [Gemtesa] (75 Mg Tablet) 1 dose PO QDAY [facility] Last Admin: 08/26/22 10:09 Dose: Not Given Polyethylene Glycol (Polyethylene Glycol 3350 17 Gm Packet) 17 gm PO DAILYP PRN PRN Reason: Constipation Potassium Chloride (Potassium Chloride 20 Meq Tablet) 40 meq PO UD PRN PRN Reason: Potssium is 3-3.5 Potassium Chloride (Potassium Chloride 20 Meq Tablet) 40 meq PO UD PRN PRN Reason: Potassium < 3 Ropinirole HCl (Ropinirole 1 Mg Tablet) 1 mg PO TID [facility] Last Admin: 08/26/22 10:02 Dose: 1 mg Senna (Sennosides 1 Tablet) 2 tab PO DAILYP PRN PRN Reason: Constipation Sodium Chloride (0.9 % Sodium Chloride 10 Ml Syringe) 10 ml IV Q8 [facility] Last Admin: 08/26/22 05:26 Dose: 10 ml A/P Narrative A/P Narrative: A: *GIB, lower: 2/2 diverticulosis *Symptomatic acute blood loss anemia on chronic: 2/2 above -good response to 2prbc on 08/24 *Peripheral edema: pt being sent to see cardiology outpt -pt had an echo last year with good EF and grade I diastolic dysfxn, -bnp low, good diuresis with lasix yesterday *Generalized weakness/deconditioning: *Carotid aa dz: pt had right IC revascularization by Dr. Marquis last April and Plavix was added to her aspirin for which she was supposed to be on both for at least 3 months. *b/l infiltrates 2/2 acute on chronic diastolic CHF +/- PNA: -strep/flu/rsv/covid neg -leukocytosis -LE edema, bnp low but may be falsely low in obesity -CXR with improvement s/p diuresis *DM2 w/neuropathy: cont dhaval *CKD IIIb: *COPD (2L@ home), chronic respiratory failure: *Parkinson disease: Continue Sinemet *HTN: *Depression: Continue SSRI *GERD: *Obesity: BMI 36 * P: -Dr. Du seen -monitor H&H -per GI ok to restart plavix, but no aspirin -pending myco -prn IV lasix will give today again and f/u cxr, cont home PO lasix -abx -home IH's and supp O2 -ssi -cont norvasc -PT/OT -CM for placement needs -ppx: SCD / home ppi Time Spent With Patient Time: Total time spent is greater than 50% in coordination of care (as documented) at patient's floor/unit and/or counseling patient: Subsequent: Total time with patient: 50 - 65 Minutes QUALITY VTE Deep Vein Thrombosis/Pulmonary Embolism Present on Admission: No
[2022-08-26] MEDS ORDERED: FUROSEMIDE 40 MG/4 ML VIAL IV ONE (11:38)
--- NOTE | 2022-08-26 11:42 | Discharge Summary ---
Discharge Provider Provider IMPORTANT FOLLOW-UP INFORMATION FOR PCP: Patient information: Note initiated : 08/26/22 at 11:39 am Service Date, if different from initiated Date: [] Patient: Brigitte Cifuentes 81 y/o F admitted on 08/24/22 for bleeding. Chief Complaint: [] Date of admission: 08/24/22 17:21 Discharge date: 08/28/22 Primary care physician: Yee Robert Consults: 08/24/22 Consult to Physician [CONS] Stat Comment: Consulting Provider: Morris Payton Reason For Exam: Physician to Consult Consult to Physician [CONS] Stat Comment: Consulting Provider: Earl Du Reason For Exam: Physician to Consult COURSE Hospital Course Hospital course: History of present illness: Ms. Cifuentes is a 81 year old F Who presents to the ED with primary blood per rectum. Patient states she is think she has had some bleeding for some time but feels over the past weekend it has increased in per the family they also saw bright red blood in the stool. She is nearly blind so she was I am unable to visualize herself. She does complain of also a significantly increasing weakness. She has some dizziness lightheadedness. She has a chronic cough but says she has a different cough lately does not particularly worse but is deeper and wet and occasionally will cough up thick sputum. She denies out of the normal shortness of breath. She does complain of headaches at times. And is chilled as well at times. She also complains of lower extremity edema which she has had for about a month. She was told by Dr. Marquis's PA that he thought she had CHF and she was being schedu led to see a printed circuit boards contact printer. Patient also started on Lasix outpatient In the ED she was found to have a hemoglobin of 7.3 markedly down from her baseline. Stool guaiac was Hemoccult positive. In the ED. Chest x-ray was done which showed some b/l interstitial infiltrates. There was concern for pneumonia patient was started on antibiotics in the ED. Dr. Robert was contacted for the GI bleed who will perform colonoscopy in the morning. In April patient had a transcarotid arterial revascularization by Dr. Marquis. She had previously been on aspirin and Plavix was started in addition at that t sarah. On the discharge instructions patient was to remain on Plavix and aspirin for at least 3 months. 4/4 Leukocytosis slightly worsened. Patient says cough is improving. No shortness of breath at rest. She feels like she is breathing better after she got the Lasix yesterday and the 2 units of red blood cells. several bloody BM's o/n. Undergoing colonoscopy today for lower GI bleed. Patient had good response in hemoglobin with blood transfusion. *per Dr. Du. Multiple diverticuli were found. The culprit lesion was not found. No active bleeding on endoscopy. Per Dr. Du, pt can resume plavix but stay off of aspirin. 4/ Patient feeling better. Hemoglobin stable. Seen by physical therapy and patient is too high risk and weak to go home alone. She needs snf facility. Good urine output yesterday after Lasix and patient states she is breathing fine. 08/27 Patient sitting up in chair. No overnight event or new complaints. Leg swelling continues to improve status post Lasix yesterday. Leukocytosis improved today. Anemia relatively stable. 08/28 Sitting up in chair eating breakfast. No overnight event or new complaints. Occasional cough no shortness of breath at rest. A: *GIB, lower: 2/2 diverticulosis *Symptomatic acute blood loss anemia on chronic: 2/2 above -good response to 2prbc on 08/24 *Peripheral edema: pt being sent to see cardiology outpt -pt had an echo last year with good EF and grade I diastolic dysfxn, *Generalized weakness/deconditioning: *Carotid aa dz: pt had right IC revascularization by Dr. Marquis last April and Plavix was added to her aspirin for which she was supposed to be on both for at least 3 months. *b/l infiltrates 2/2 acute on chronic diastolic CHF +/- PNA: -strep/flu/rsv/covid neg *DM2 w/neuropathy: cont dhaval *CKD IIIb: *COPD (2L@ home), chronic respiratory failure: *Parkinson disease: Continue Sinemet *HTN: *Depression: Continue SSRI *GERD: *Obesity: BMI 36 P: -per GI ok to restart plavix, but no aspirin -cont home PO lasix -complete abx Discharge diagnosis: GI bleed symptomatic anemia peripheral edema chf Secondary discharge diagnosis: Generalized weakness deconditioning carotid disease diabetes chronic kidney disease COPD Parkinson's hypertension depression GERD obesity possible pna Time Spent with Patient Time attestation: Total time spent providing and/or coordinating discharge services: Time spent: Greater than 30 minutes EXAM Constitutional Vitals: Temp Pulse Resp BP Pulse Ox O2 Del Method O2 Flow Rate 98.1 F 85 18 108/59 90 Nasal Cannula 2 08/26/22 07:54 08/26/22 07:54 08/26/22 07:54 08/26/22 07:54 08/26/22 07:54 08/26/22 07:54 08/26/22 07:54 Discharge Data Data Completed and Pending Labs on day of discharge: Labs from last 24 hours 08/26/22 08/26/22 05:45 05:45 WBC 14.0 H RBC 3.98 Hgb 9.5 L Hct 32.1 L MCV 80.7 MCH 23.9 L MCHC 29.6 L RDW 16.9 H Plt Count 340 MPV 9.4 Immature Gran % (Auto) 0.5 Neut % (Auto) 62.3 Lymph % (Auto) 21.4 [place] % (Auto) 10.0 Eos % (Auto) 5.1 Baso % (Auto) 0.7 Lymph # (Auto) 3.01 [place] # (Auto) 1.40 H Eos # (Auto) 0.71 H Baso # (Auto) 0.10 Immature Gran # 0.07 H Absolute Neutrophils 8.75 H Sodium 137 Potassium 3.9 Chloride 96 Carbon Dioxide 28 Anion Gap 13.0 BUN 16 Creatinine 1.2 H GFR Calculation 42 Glucose 158 H Uric Acid 6.0 Calcium 8.6 Phosphorus 4.0 Magnesium 1.9 Total Bilirubin 0.2 Direct Bilirubin < 0.2 GGT 105 H AST 18 ALT < 5 Alkaline Phosphatase 88 Lactate Dehydrogenase 225 Total Protein 6.2 Albumin 3.4 Globulin 2.8 Albumin/Globulin Ratio 1.2 Triglycerides 179 H Preliminary micro results at discharge 08/25/22 00:49 Gram Stain - Preliminary Sputum source - Induced Sputum Culture - Preliminary 08/24/22 15:10 Blood Culture - Preliminary Blood 08/24/22 15:06 Blood Culture - Preliminary Blood Discharge Plan Patient/Caregiver Discharge Instructions Activity: increase activity as tolerated Diet: Consistent Carbohydrate Instructions: Clopidogrel (By mouth), Gastrointestinal Bleeding (DC), Anemia (DC), Edema (DC) Activity Restrictions/Additional Instructions: Increase Activity as tolerated. Consistent Carb diet as tolerated. Contact physician for any sustained fever over 100.5, signs of infection, bleeding, pain and discomfort not managed by medication and rest, and any questions or concerns you might have. This discharge packet is provided to you to help keep you informed about your care. We want to ensure you get everything you need when you go home. You will also be receiving a call from us in a few days to follow up with you and see how you are doing since your discharge. This gives us a chance to listen to any concerns you maybe experiencing since you were discharged or any additional needs you may have, as well as providing us feedback on your care experience. We strive to always provide excellent care and thank you for your feedback and for choosing [facility]. Prescriptions: New clopidogrel [Plavix] 75 mg tablet 75 mg PO QDAY Qty: 1 0RF cefpodoxime 200 mg tablet 200 mg PO BID Qty: 4 0RF Rx Instructions: must administer with a meal/food Continued carbidopa-levodopa 50-200 mg tablet extended release 1 tab PO QID hydrocortisone 2.5 % cream 1 applic TOPICAL BID PRN (Reason: unknown) ropinirole 1 mg tablet 1 mg PO TID Cholestyramine Light 4 gram powder PO TID PRN (Reason: unknown) loratadine 10 mg tablet 10 mg PO QDAY fluoxetine 60 mg tablet 60 mg PO QDAY acetaminophen 325 mg capsule 500 mg PO Q6H PRN (Reason: Pain, Moderate) omeprazole 20 mg capsule,delayed release(DR/EC) 20 mg PO QDAY Trulicity 0.75 mg/0.5 mL pen injector 0.75 mg SUB-Q QWEEK magnesium 250 mg tablet 500 mg PO QDAY albuterol sulfate 1 PUFF inhaler 2 puff INH BID PRN (Reason: shortness of breath) budesonide-formoterol 10.2 GM HFA aerosol inhaler 10.2 gm IH BID atorvastatin 40 mg Tablet 40 mg PO QHS potassium chloride 10 mEq Tablet Extended Release 10 meq PO QDAY MDD 5-day course. 3 days left amlodipine 5 mg Tablet 5 mg PO QDAY furosemide [Lasix] 20 mg Tablet 20 mg PO QDAY minocycline 50 mg Tablet 50 mg PO QDAY Gemtesa 75 mg Tablet 75 mg PO QDAY gabapentin 100 mg Capsule 100 mg PO TID polyethylene glycol 3350 [Miralax] 17 gram/dose powder 17 g PO QDAY PRN (Reason: constipation) Qty: 119 0RF Rx Instructions: use as directed Discontinued clopidogrel 75 mg tablet 75 mg PO QDAY aspirin 81 mg tablet,delayed release (DR/EC) 81 mg PO QAM Follow Up Plan Follow up with: Yee Robert ARNP [Primary Care Provider] - 09/03/22 9:00 am (Follow up appointment with your PCP is scheduled for 09/03 9:00am.) Patient Disposition: Xfer SNF Prognosis: Fair Rehab Potential: Fair I certify that the patient requires SNF services: Yes Overall status at discharge: patient is progressing back to baseline Discharge Orders: Discharge Order (Routine); Ordered 08/28/22 Ordered By: Morris Payton [facility] VTE Deep Vein Thrombosis/Pulmonary Embolism Present on Admission: No
[2022-08-26] MEDS: ATORVASTATIN 40 MG TABLET PO SCH (20:23)
[2022-08-27] MEDS: Budesonide-Formoterol 10.2 GM HFA aerosol inhaler INH SCH ×3 (05:32→21:07)
[2022-08-27] MEDS: IPRATROPIUM/ALBUTEROL 3 ML AMPUL.NEB NEB SCH ×2 (05:34→14:05)
[2022-08-27] MEDS: 0.9 % SODIUM CHLORIDE 10 ML SYRINGE IV SCH ×3 (05:34→21:07)
[2022-08-27 06:18] LABS: Hematocrit 31.2 % (34.1-44.9); Hemoglobin 9.2 g/dL (11.2-15.7); Mean Cell Volume 80.6 fL (80.0-100.0); Mean Corpuscular HGB Conc 29.5 g/dL (31.0-36.0); Mean Platelet Volume 9.1 fL (8.8-12.5); Platelet Count 334 K/mcL (140-440); RBC 3.87 M/mcL (3.59-5.38); Red Cell Distribution Width 17.1 % (11.5-14.5); WBC 11.5 K/mcL (4.5-11.0)
--- NOTE | 2022-08-27 07:41 | Internal Med Progress Note ---
SUBJECTIVE Subjective Patient information: Note initiated : 08/27/22 at 7:38 am Service Date, if different from initiated Date: [] Patient: Brigitte Cifuentes a 81 y/o F admitted on 08/24/22 for bleeding. Chief Complaint: [] Interval history: History of present illness: Ms. Cifuentes is a 81 year old F Who presents to the ED with primary blood per rectum. Patient states she is think she has had some bleeding for some time but feels over the past weekend it has increased in per the family they also saw bright red blood in the stool. She is nearly blind so she was I am unable to visualize herself. She does complain of also a significantly increasing weakness. She has some dizziness lightheadedness. She has a chronic cough but says she has a different cough lately does not particularly worse but is deeper and wet and occasionally will cough up thick sputum. She denies out of the normal shortness of breath. She does complain of headaches at times. And is chilled as well at times. She also complains of lower extremity edema which she has had for about a month. She was told by Dr. Marquis's PA that he thought she had CHF and she was being sche duled to see a remedial project manager. Patient also started on Lasix outpatient In the ED she was found to have a hemoglobin of 7.3 markedly down from her baseline. Stool guaiac was Hemoccult positive. In the ED. Chest x-ray was done which showed some b/l interstitial infiltrates. There was concern for pneumonia patient was started on antibiotics in the ED. Dr. Robert was contacted for the GI bleed who will perform colonoscopy in the morning. In April patient had a transcarotid arterial revascularization by Dr. Marquis. She had previously been on aspirin and Plavix was started in addition at that time. On the discharge instructions patient was to remain on Plavix and aspirin for at least 3 months. 4/4 Leukocytosis slightly worsened. Patient says cough is improving. No shortness of breath at rest. She feels like she is breathing better after she got the Lasix yesterday and the 2 units of red blood cells. several bloody BM's o/n. Undergoing colonoscopy today for lower GI bleed. Patient had good response in hemoglobin with blood transfusion. *per Dr. Du. Multiple diverticuli were found. The culprit lesion was not found. No active bleeding on endoscopy. Per Dr. Du, pt can resume plavix but stay off of aspirin. 4/5 Patient feeling better. Hemoglobin stable. Seen by physical therapy and patient is too high risk and weak to go home alone. She needs fpc facility. Good urine output yesterday after Lasix and patient states she is breathing fine. 4/6 Patient sitting up in chair. No overnight event or new complaints. Leg swelling continues to improve status post Lasix yesterday. Leukocytosis improved today. Anemia relatively stable. Review of Systems: Pertinent positives as above. Denies /fever//nausea/vomiting/abdominal pain//dyspnea/diarrhea. Remaining 10 point review of system reviewed negative PHYSICAL EXAM General: Alert, Awake, No acute Distress, obese Eyes/N/T: EOMI, no scleral icterus, Head/Neck: neck supple, full ROM, CV: RRR, No murmurs, Pulm: Fine bibasilar Rales, no wheezing, no respiratory distress Abd: soft, nontender, +BS x4 Ext: no clubbing/cyanosis, b/l LE 1+ edema, Neuro: Alert, no focal deficits, moves all extremities, sensations intact b/l upper/lower Psychiatric: Skin: warm/dry, normal color Constitutional Vitals: Vital Signs Temp Pulse Resp BP Pulse Ox O2 Del Method O2 Flow Rate 99.1 F H 81 16 123/54 93 Nasal Cannula 3 08/27/22 03:45 08/27/22 04:00 08/27/22 04:00 08/27/22 03:45 08/27/22 04:00 08/27/22 04:00 08/27/22 04:00 Period Temp Pulse Resp BP Sys/Hanson Pulse Ox O2 Del Method O2 Flow Rate Last 24 Hr 97.1 F-99.8 F 81-92 16-20 108-135/47-59 88-94 Nasal Cannula- Nasal Cannula 2-3 Intake and Output 08/26/22 08/27/22 08/27/22 19:59 03:59 11:59 Intake Total 620 Output Total 600 1150 425 Balance -600 -530 -425 Weight 108.726 kg Intake & Output: Intake & Output 08/26/22 08/27/22 08/27/22 19:59 03:59 11:59 Intake Total 620 Output Total 600 1150 425 Balance -600 -530 -425 Weight 108.726 kg Intake: Oral 620 Output: Void Amount 600 1150 425 Other: Meal Lunch Percent of Meal Consumed 100% Feeding Ability Independent Urine Appearance Clear Clear Purewick Clear Urine Color Yellow Yellow Purewick Yellow OBJ DATA Labs 08/27/22 05:31 08/26/22 05:45 Labs: Abnormal Lab Results 08/27/22 08/26/22 08/26/22 05:31 05:45 05:45 WBC 11.5 H 14.0 H RBC Hgb 9.2 L 9.5 L Hct 31.2 L 32.1 L POC Hct MCV MCH 23.8 L 23.9 L MCHC 29.5 L 29.6 L RDW 17.1 H 16.9 H [place] # (Auto) 1.40 H Eos # (Auto) 0.71 H Immature Gran # 0.07 H Absolute Neutrophils 8.75 H RBC Morphology Hypochromasia Anisocytosis Microcytosis Creatinine 1.2 H Glucose 158 H POC Glucose POC WB Ioniz Calcium GGT 105 H C-Reactive Protein Triglycerides 179 H Procalcitonin Urine Appearance Urine Protein Urine Occult Blood Ur Leukocyte Esterase Urine RBC Urine WBC Ur Squamous Epith Cells 08/25/22 08/25/22 08/24/22 05:56 05:56 15:15 WBC 12.0 H RBC Hgb 9.6 L Hct 31.7 L POC Hct MCV 79.8 L MCH 24.2 L MCHC 30.3 L RDW 16.3 H [place] # (Auto) 1.22 H Eos # (Auto) 0.80 H Immature Gran # Absolute Neutrophils RBC Morphology Hypochromasia Anisocytosis Microcytosis Creatinine Glucose 114 H POC Glucose POC WB Ioniz Calcium GGT 108 H C-Reactive Protein 1.00 H Triglycerides 192 H Procalcitonin Urine Appearance Urine Protein Urine Occult Blood Ur Leukocyte Esterase Urine RBC Urine WBC Ur Squamous Epith Cells 08/24/22 08/24/22 08/24/22 15:15 14:23 14:21 WBC RBC Hgb Hct POC Hct 25.0 L MCV MCH MCHC RDW [place] # (Auto) Eos # (Auto) Immature Gran # Absolute Neutrophils RBC Morphology Abnormal A Hypochromasia 3+ A Anisocytosis 1+ A Microcytosis 1+ A Creatinine Glucose POC Glucose 182 H POC WB Ioniz Calcium 1.14 L GGT C-Reactive Protein Triglycerides Procalcitonin 0.10 H Urine Appearance Urine Protein Urine Occult Blood Ur Leukocyte Esterase Urine RBC Urine WBC Ur Squamous Epith Cells 08/24/22 08/24/22 14:21 13:49 WBC 11.3 H RBC 3.26 L Hgb 7.3 L Hct 26.2 L POC Hct MCV MCH 22.4 L MCHC 27.9 L RDW 16.9 H [place] # (Auto) 1.00 H Eos # (Auto) Immature Gran # Absolute Neutrophils RBC Morphology Hypochromasia Anisocytosis Microcytosis Creatinine Glucose POC Glucose POC WB Ioniz Calcium GGT C-Reactive Protein Triglycerides Procalcitonin Urine Appearance Hazy A Urine Protein 30 A Urine Occult Blood >=1.0 A Ur Leukocyte Esterase 250 A Urine RBC 56 H Urine WBC 89 H Ur Squamous Epith Cells 5 H Meds: Medications Acetaminophen (Acetaminophen 325 Mg Tablet) 650 mg PO Q6HP PRN; Protocol PRN Reason: Per Pain Protocol/Fever > 101 Last Admin: 08/26/22 20:23 Dose: 650 mg Albuterol/Ipratropium (Ipratropium/Albuterol 3 Ml Ampul.Neb) 3 ml NEB Q8 [facility] Last Admin: 08/27/22 05:34 Dose: 3 ml Amlodipine Besylate (Amlodipine 5 Mg Tablet) 5 mg PO QDAY [facility] Last Admin: 08/26/22 10:03 Dose: 5 mg Atorvastatin Calcium (Atorvastatin 40 Mg Tablet) 40 mg PO QHS [facility] Last Admin: 08/26/22 20:23 Dose: 40 mg Carbidopa/Levodopa (Carbidopa/Levodopa Cr 25/100 Tablet) 2 tab PO QID [facility] Last Admin: 08/26/22 20:24 Dose: 2 tab Ceftriaxone Sodium (Ceftriaxone 1 Gm Vial) 1 gm IV Q24H [facility]; Protocol Last Admin: 08/26/22 10:03 Dose: 1 gm Dextrose (Dextrose 50% 50 Ml Vial) 0 ml IV UD PRN PRN Reason: Per Sliding Scale Diagnostic Test (Pha) (Accu-Chek 1 Each Strip) 1 each FS ACHS [facility] Last Admin: 08/26/22 20:16 Dose: 1 each Fluoxetine HCl (Fluoxetine Hcl 20 Mg Capsule) 60 mg PO DAILY [facility] Last Admin: 08/26/22 10:02 Dose: 60 mg Furosemide (Furosemide 20 Mg Tablet) 20 mg PO QDAY [facility] Last Admin: 08/26/22 10:03 Dose: 20 mg Gabapentin (Gabapentin 100 Mg Capsule) 100 mg PO TID [facility] Last Admin: 08/26/22 20:23 Dose: 100 mg Glucose (Dextrose 31 Gm Oral.Susp) 15 gm PO PRN PRN PRN Reason: Hypoglycemia Potassium Chloride 40 meq/ (Dextrose) 520 mls @ 130 mls/hr IV UD PRN PRN Reason: Potassium < 3 Magnesium Sulfate (Magnesium Sulfate) 2 gm in 50 mls @ 50 mls/hr IV UD PRN PRN Reason: Magnesium </= 1.6 Insulin Human Lispro (Insulin Lispro 1 Unit/0.01 Ml Unit) 0 unit SQ ACHS [facility]; Protocol Last Admin: 08/26/22 20:23 Dose: 6 units Omeprazole (Omeprazole 20 Mg Capsule) 20 mg PO QDAY [facility] Last Admin: 08/26/22 10:03 Dose: 20 mg Ondansetron HCl (Ondansetron 4 Mg/2 Ml Vial) 4 mg IV Q4HP PRN PRN Reason: Nausea And Vomiting Last Admin: 08/25/22 11:51 Dose: 4 mg Budesonide- Formoterol 10.2 Gm Hfa Aerosol Inhaler 1 dose INH BID [facility] Last Admin: 08/27/22 05:32 Dose: Not Given Vibegron [Gemtesa] (75 Mg Tablet) 1 dose PO QDAY [facility] Last Admin: 08/26/22 16:48 Dose: 1 dose Polyethylene Glycol (Polyethylene Glycol 3350 17 Gm Packet) 17 gm PO DAILYP PRN PRN Reason: Constipation Potassium Chloride (Potassium Chloride 20 Meq Tablet) 40 meq PO UD PRN PRN Reason: Potssium is 3-3.5 Potassium Chloride (Potassium Chloride 20 Meq Tablet) 40 meq PO UD PRN PRN Reason: Potassium < 3 Ropinirole HCl (Ropinirole 1 Mg Tablet) 1 mg PO TID [facility] Last Admin: 08/26/22 20:23 Dose: 1 mg Senna (Sennosides 1 Tablet) 2 tab PO DAILYP PRN PRN Reason: Constipation Sodium Chloride (0.9 % Sodium Chloride 10 Ml Syringe) 10 ml IV Q8 [facility] Last Admin: 08/27/22 05:34 Dose: 10 ml A/P Narrative A/P Narrative: A: *GIB, lower: 2/2 diverticulosis *Symptomatic acute blood loss anemia on chronic: 2/2 above -good response to 2prbc on 08/24, stable *Peripheral edema: pt being sent to see cardiology outpt -pt had an echo last year with good EF and grade I diastolic dysfxn, -bnp low, good diuresis with lasix *Generalized weakness/deconditioning: *Carotid aa dz: pt had right IC revascularization by Dr. Marquis last April and Plavix was added to her aspirin for which she was supposed to be on both for at least 3 months. *b/l infiltrates 2/2 acute on chronic diastolic CHF +/- PNA: -strep/flu/rsv/covid neg -leukocytosis now improved -LE edema, bnp low but may be falsely low in obesity -CXR with improvement s/p diuresis *DM2 w/neuropathy: cont dhaval *CKD IIIb: *COPD (2L@ home), chronic respiratory failure: *Parkinson disease: Continue Sinemet *HTN: *Depression: Continue SSRI *GERD: *Obesity: BMI 36 * P: -Dr. Du seen -monitor H&H -per GI ok to restart plavix, but no aspirin -pending myco -prn IV lasix, cont home PO lasix -abx -home IH's and supp O2 -ssi -cont norvasc -PT/OT -CM for placement needs -ppx: SCD / home ppi Time Spent With Patient Time: Total time spent is greater than 50% in coordination of care (as documented) at patient's floor/unit and/or counseling patient: Subsequent: Total time with patient: 35 - 49 minutes QUALITY VTE Deep Vein Thrombosis/Pulmonary Embolism Present on Admission: No
[2022-08-27 08:48] LABS: Anisocytosis 2+ (None Seen); Band Neutrophils % 1 % (0-10); Basophils % (Manual) 1 % (0-2); Eosinophils % (Manual) 4 % (0-7); Hypochromasia 1+ (None Seen); Lymphocytes % 16 % (15-49); Monocytes % (Manual) 12 % (1-12); Platelet Estimate NORMAL (Normal); RBC Morphology ABNORMAL (Normal); Reactive Lymphocytes 3 % (0-2); Segmented Neutrophils % 63 % (38-78)
[2022-08-27] MEDS: INSULIN LISPRO 1 UNIT/0.01 ML UNIT SQ SCH ×4 (09:23→21:06)
[2022-08-27] MEDS: ACETAMINOPHEN 325 MG TABLET PO PRN ×3 (09:57→21:06)
[2022-08-27] MEDS: FLUoxetine HCL 20 MG CAPSULE PO SCH (09:57)
[2022-08-27] MEDS: amLODIPine 5 MG TABLET PO SCH (09:58)
[2022-08-27] MEDS: rOPINIRole 1 MG TABLET PO SCH ×3 (09:58→21:06)
[2022-08-27] MEDS: FUROSEMIDE 20 MG TABLET PO SCH (09:58)
[2022-08-27] MEDS: CARBIDOPA/LEVODOPA CR 25/100 TABLET PO SCH ×4 (09:58→21:06)
[2022-08-27] MEDS: GABAPENTIN 100 MG CAPSULE PO SCH ×3 (09:58→21:06)
[2022-08-27] MEDS: OMEPRAZOLE 20 MG CAPSULE PO SCH (09:58)
[2022-08-27] MEDS: cefTRIAXone 1 GM VIAL IV SCH (10:01)
--- NOTE | 2022-08-27 13:11 | EKG ---
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 Measurements Intervals [place] Rate: 91 P: 27 CA: 201 QRS: 1 QRSD: 107 T: 20 QT: 436 QTc: 537 Interpretive Statements Motion artifact in multiple leads Probably Sinus rhythm Electronically Signed On 08-27-2022 13:11:19 PDT by Jose Gar M.D. /[email or web address]/[email or web address]/[id number]
[2022-08-27] MEDS: ATORVASTATIN 40 MG TABLET PO SCH (21:06)
[2022-08-28] MEDS: IPRATROPIUM/ALBUTEROL 3 ML AMPUL.NEB NEB SCH ×3 (01:11→13:22)
[2022-08-28] MEDS: ACETAMINOPHEN 325 MG TABLET PO PRN (03:44)
[2022-08-28] MEDS: 0.9 % SODIUM CHLORIDE 10 ML SYRINGE IV SCH ×2 (05:33→13:22)
[2022-08-28] MEDS: INSULIN LISPRO 1 UNIT/0.01 ML UNIT SQ SCH ×2 (06:43→12:33)
--- NOTE | 2022-08-28 07:14 | Internal Med Progress Note ---
SUBJECTIVE Subjective Patient information: Note initiated : 08/28/22 at 7:12 am Service Date, if different from initiated Date: [] Patient: Brigitte Cifuentes a 81 y/o F admitted on 08/27/22 for bleeding. Chief Complaint: [] Interval history: History of present illness: Ms. Cifuentes is a 81 year old F Who presents to the ED with primary blood per rectum. Patient states she is think she has had some bleeding for some time but feels over the past weekend it has increased in per the family they also saw bright red blood in the stool. She is nearly blind so she was I am unable to visualize herself. She does complain of also a significantly increasing weakness. She has some dizziness lightheadedness. She has a chronic cough but says she has a different cough lately does not particularly worse but is deeper and wet and occasionally will cough up thick sputum. She denies out of the normal shortness of breath. She does complain of headaches at times. And is chilled as well at times. She also complains of lower extremity edema which she has had for about a month. She was told by Dr. Marquis's PA that he thought she had CHF and she was being sche duled to see a auto body detailer. Patient also started on Lasix outpatient In the ED she was found to have a hemoglobin of 7.3 markedly down from her baseline. Stool guaiac was Hemoccult positive. In the ED. Chest x-ray was done which showed some b/l interstitial infiltrates. There was concern for pneumonia patient was started on antibiotics in the ED. Dr. Robert was contacted for the GI bleed who will perform colonoscopy in the morning. In April patient had a transcarotid arterial revascularization by Dr. Marquis. She had previously been on aspirin and Plavix was started in addition at that time. On the discharge instructions patient was to remain on Plavix and aspirin for at least 3 months. 4/4 Leukocytosis slightly worsened. Patient says cough is improving. No shortness of breath at rest. She feels like she is breathing better after she got the Lasix yesterday and the 2 units of red blood cells. several bloody BM's o/n. Undergoing colonoscopy today for lower GI bleed. Patient had good response in hemoglobin with blood transfusion. *per Dr. Du. Multiple diverticuli were found. The culprit lesion was not found. No active bleeding on endoscopy. Per Dr. Du, pt can resume plavix but stay off of aspirin. 4/5 Patient feeling better. Hemoglobin stable. Seen by physical therapy and patient is too high risk and weak to go home alone. She needs half-way facility. Good urine output yesterday after Lasix and patient states she is breathing fine. / Patient sitting up in chair. No overnight event or new complaints. Leg swelling continues to improve status post Lasix yesterday. Leukocytosis improved today. Anemia relatively stable. 08/28 Sitting up in chair eating breakfast. No overnight event or new complaints. Occasional cough no shortness of breath at rest. Review of Systems: Pertinent positives as above. Denies /fever/chills/nausea/vomiting/abdominal pain//dyspnea/diarrhea. Remaining 10 point review of system reviewed negative PHYSICAL EXAM General: Alert, Awake, No acute Distress, obese Eyes/N/T: EOMI, no scleral icterus, Head/Neck: neck supple, full ROM, CV: RRR, No murmurs, Pulm: Fine bibasilar Rales, no wheezing, no respiratory distress Abd: soft, nontender, +BS x4 Ext: no clubbing/cyanosis, b/l LE 1+ edema, Neuro: Alert, no focal deficits, moves all extremities, sensations intact b/l upper/lower Psychiatric: Skin: warm/dry, normal color Constitutional Vitals: Vital Signs Temp Pulse Resp BP Pulse Ox O2 Del Method O2 Flow Rate 98.2 F 86 18 125/54 92 Nasal Cannula 3 08/28/22 06:41 08/28/22 06:41 08/28/22 06:41 08/28/22 06:41 08/28/22 06:41 08/28/22 06:41 08/28/22 06:41 Period Temp Pulse Resp BP Sys/Hanson Pulse Ox O2 Del Method O2 Flow Rate Last 24 Hr 97.3 F-98.5 F 82-90 16-22 103-142/42-64 90-95 Nasal Cannula- Nasal Cannula, Bubble Humidifier 2-3 Intake and Output 08/27/22 08/28/22 08/28/22 19:59 03:59 11:59 Intake Total 360 500 Output Total 1051 Balance 360 -551 Weight 130.362 kg Intake & Output: Intake & Output 08/27/22 08/28/22 08/28/22 19:59 03:59 11:59 Intake Total 360 500 Output Total 1051 Balance 360 -551 Weight 130.362 kg Intake: Oral 360 500 Output: Void Amount 1050 # of times incontinent of urine 1 Other: Meal Lunch Percent of Meal Consumed 100% Urine Appearance Clear Purewick Clear Urine Color Yellow Purewick Light Jennifer Urine Odor Normal Stool Size Large Stool Color Brown Stool Consistency Soft Loose # of times incontinent of 1 Bowels OBJ DATA Labs 08/27/22 05:31 08/26/22 05:45 Labs: Abnormal Lab Results 08/27/22 08/26/22 08/26/22 05:31 05:45 05:45 WBC 11.5 H 14.0 H Hgb 9.2 L 9.5 L Hct 31.2 L 32.1 L MCH 23.8 L 23.9 L MCHC 29.5 L 29.6 L RDW 17.1 H 16.9 H [place] # (Auto) 1.40 H Eos # (Auto) 0.71 H Immature Gran # 0.07 H Absolute Neutrophils 8.75 H Reactive Lymphocytes 3 H RBC Morphology Abnormal A Hypochromasia 1+ A Anisocytosis 2+ A Creatinine 1.2 H Glucose 158 H GGT 105 H Triglycerides 179 H 08/25/22 05:56 WBC Hgb Hct MCH MCHC RDW [place] # (Auto) Eos # (Auto) Immature Gran # Absolute Neutrophils Reactive Lymphocytes RBC Morphology Hypochromasia Anisocytosis Creatinine Glucose 114 H GGT 108 H Triglycerides 192 H Meds: Medications Acetaminophen (Acetaminophen 325 Mg Tablet) 650 mg PO Q6HP PRN; Protocol PRN Reason: Per Pain Protocol/Fever > 101 Last Admin: 08/28/22 03:44 Dose: 650 mg Albuterol/Ipratropium (Ipratropium/Albuterol 3 Ml Ampul.Neb) 3 ml NEB Q8 [facility] Last Admin: 08/28/22 04:07 Dose: 3 ml Amlodipine Besylate (Amlodipine 5 Mg Tablet) 5 mg PO QDAY [facility] Last Admin: 08/27/22 09:58 Dose: 5 mg Atorvastatin Calcium (Atorvastatin 40 Mg Tablet) 40 mg PO QHS [facility] Last Admin: 08/27/22 21:06 Dose: 40 mg Carbidopa/Levodopa (Carbidopa/Levodopa Cr 25/100 Tablet) 2 tab PO QID [facility] Last Admin: 08/27/22 21:06 Dose: 2 tab Ceftriaxone Sodium (Ceftriaxone 1 Gm Vial) 1 gm IV Q24H [facility]; Protocol Last Admin: 08/27/22 10:01 Dose: 1 gm Clopidogrel Bisulfate (Clopidogrel 75 Mg Tablet) 75 mg PO DAILY [facility] Dextrose (Dextrose 50% 50 Ml Vial) 0 ml IV UD PRN PRN Reason: Per Sliding Scale Diagnostic Test (Pha) (Accu-Chek 1 Each Strip) 1 each FS [facility] Last Admin: 08/28/22 06:43 Dose: 1 each Fluoxetine HCl (Fluoxetine Hcl 20 Mg Capsule) 60 mg PO DAILY [facility] Last Admin: 08/27/22 09:57 Dose: 60 mg Furosemide (Furosemide 20 Mg Tablet) 20 mg PO QDAY [facility] Last Admin: 08/27/22 09:58 Dose: 20 mg Gabapentin (Gabapentin 100 Mg Capsule) 100 mg PO TID [facility] Last Admin: 08/27/22 21:06 Dose: 100 mg Glucose (Dextrose 31 Gm Oral.Susp) 15 gm PO PRN PRN PRN Reason: Hypoglycemia Potassium Chloride 40 meq/ (Dextrose) 520 mls @ 130 mls/hr IV UD PRN PRN Reason: Potassium < 3 Magnesium Sulfate (Magnesium Sulfate) 2 gm in 50 mls @ 50 mls/hr IV UD PRN PRN Reason: Magnesium </= 1.6 Insulin Human Lispro (Insulin Lispro 1 Unit/0.01 Ml Unit) 0 unit SQ [facility]; Protocol Last Admin: 08/28/22 06:43 Dose: Not Given Omeprazole (Omeprazole 20 Mg Capsule) 20 mg PO QDAY [facility] Last Admin: 08/27/22 09:58 Dose: 20 mg Ondansetron HCl (Ondansetron 4 Mg/2 Ml Vial) 4 mg IV Q4HP PRN PRN Reason: Nausea And Vomiting Last Admin: 08/25/22 11:51 Dose: 4 mg Budesonide- Formoterol 10.2 Gm Hfa Aerosol Inhaler 1 dose INH BID [facility] Last Admin: 08/27/22 21:07 Dose: Not Given Vibegron [Gemtesa] (75 Mg Tablet) 1 dose PO QDAY [facility] Last Admin: 08/27/22 09:59 Dose: Not Given Polyethylene Glycol (Polyethylene Glycol 3350 17 Gm Packet) 17 gm PO DAILYP PRN PRN Reason: Constipation Potassium Chloride (Potassium Chloride 20 Meq Tablet) 40 meq PO UD PRN PRN Reason: Potssium is 3-3.5 Potassium Chloride (Potassium Chloride 20 Meq Tablet) 40 meq PO UD PRN PRN Reason: Potassium < 3 Ropinirole HCl (Ropinirole 1 Mg Tablet) 1 mg PO TID [facility] Last Admin: 08/27/22 21:06 Dose: 1 mg Senna (Sennosides 1 Tablet) 2 tab PO DAILYP PRN PRN Reason: Constipation Sodium Chloride (0.9 % Sodium Chloride 10 Ml Syringe) 10 ml IV Q8 [facility] Last Admin: 08/28/22 05:33 Dose: 10 ml A/P Narrative A/P Narrative: A: *GIB, lower: 2/2 diverticulosis, resolved *Symptomatic acute blood loss anemia on chronic: 2/2 above -good response to 2prbc on 08/24, stable *Peripheral edema: pt being sent to see cardiology outpt -pt had an echo last year with good EF and grade I diastolic dysfxn, -bnp low but pt obese, good diuresis with lasix *Generalized weakness/deconditioning: *Carotid aa dz: pt had right IC revascularization by Dr. Marquis last April and Plavix was added to her aspirin for which she was supposed to be on both for at least 3 months. *b/l infiltrates 2/2 acute on chronic diastolic CHF +/- PNA: -strep/flu/rsv/covid neg -leukocytosis now improved -LE edema, bnp low but may be falsely low in obesity -CXR with improvement s/p diuresis *DM2 w/neuropathy: cont dhaval *CKD IIIb: *COPD (2L@ home), chronic respiratory failure: *Parkinson disease: Continue Sinemet *HTN: *Depression: Continue SSRI *GERD: *Obesity: BMI 36 * P: -Dr. Du seen -monitor H&H -per GI ok to restart plavix, but no aspirin -pending myco -prn IV lasix, cont home PO lasix -abx -home IH's and supp O2 -ssi -cont norvasc -PT/OT -CM for placement needs -ppx: SCD / home ppi Time Spent With Patient Time: Total time spent is greater than 50% in coordination of care (as documented) at patient's floor/unit and/or counseling patient: Subsequent: Total time with patient: 35 - 49 minutes QUALITY VTE Deep Vein Thrombosis/Pulmonary Embolism Present on Admission: No
[2022-08-28] MEDS ORDERED: CLOPIDOGREL 75 MG TABLET PO SCH (09:00)
[2022-08-28] MEDS: FLUoxetine HCL 20 MG CAPSULE PO SCH (10:28)
[2022-08-28] MEDS: CARBIDOPA/LEVODOPA CR 25/100 TABLET PO SCH ×2 (10:28→12:57)
[2022-08-28] MEDS: GABAPENTIN 100 MG CAPSULE PO SCH (10:28)
[2022-08-28] MEDS: amLODIPine 5 MG TABLET PO SCH (10:29)
[2022-08-28] MEDS: rOPINIRole 1 MG TABLET PO SCH (10:29)
[2022-08-28] MEDS: OMEPRAZOLE 20 MG CAPSULE PO SCH (10:29)
[2022-08-28] MEDS: FUROSEMIDE 20 MG TABLET PO SCH (10:29)
[2022-08-28] MEDS: cefTRIAXone 1 GM VIAL IV SCH (10:36)
[2022-08-28] MEDS: Budesonide-Formoterol 10.2 GM HFA aerosol inhaler INH SCH (10:38)
[2022-09-01 15:20] LABS: M. Pneumoniae IGG < or = 0.90; M. Pneumoniae IGM 81 U/mL
== END 2022-08-28 13:17 | DRG 377 ==
LOC: ED 12:30 → MEDSUR 12:30
PROVIDERS: ADMIT Internal Medicine; ATTEND Internal Medicine

== ENCOUNTER 2023-02-14 20:38 | Inpatient (IN) ==
[2023-02-14 21:46] LABS: POC Calcium, Ionized 1.1 (1.16-1.32); POC Potassium 4.2 (3.3-5.1)
[2023-02-14 22:13] LABS: Basophils # (Auto) 0.04 K/mcL (0.00-0.30); Basophils % (Auto) 0.4 % (0.0-2.0); Eosinophils % (Auto) 2.2 % (0.0-7.0); Hematocrit 38.5 % (34.1-44.9); Hemoglobin 12.2 g/dL (11.2-15.7); Lymphocytes # (Auto) 1.11 K/mcL (1.50-4.80); Mean Cell Volume 91.2 fL (80.0-100.0); Mean Corpuscular HGB Conc 31.7 g/dL (31.0-36.0); Mean Platelet Volume 9.4 fL (8.8-12.5); Monocytes # (Auto) 1.28 K/mcL (0.10-0.90); Monocytes % (Auto) 13.8 % (1.0-12.0); Neutrophils % (Auto) 71.3 % (38.0-78.0); Platelet Count 199 K/mcL (140-440); RBC 4.22 M/mcL (3.59-5.38); Red Cell Distribution Width 13.8 % (11.5-14.5); WBC 9.3 K/mcL (4.5-11.0)
[2023-02-14 22:32] LABS: ALT/SGPT < 5 U/L (<40); AST/SGOT 16 U/L (<32); Albumin 3.7 gm/dL (3.2-5.2); Alkaline Phosphatase 69 U/L (39-117); Bilirubin,Direct < 0.2 mg/dL (0-0.3); Bilirubin,Total 0.3 mg/dL (0.1-1.0); Globulin 2.3 gm/dL (2.2-3.7)
[2023-02-15] MEDS ORDERED: ONDANSETRON 4 MG/2 ML VIAL IV PRN ×2 (02:39→12:15)
[2023-02-15] MEDS ORDERED: DEXTROSE 50% 50 ML VIAL IV PRN (02:44)
[2023-02-15] MEDS ORDERED: DEXTROSE 31 GM ORAL.SUSP PO PRN (02:44)
[2023-02-15] MEDS ORDERED: cefTRIAXone 1 GM VIAL IV ONE (02:51)
[2023-02-15] MEDS ORDERED: KETOROLAC 15 MG/ML VIAL IV ONE (02:53)
[2023-02-15] MEDS ORDERED: IPRATROPIUM/ALBUTEROL 3 ML AMPUL.NEB NEB PRN (02:54)
[2023-02-15] MEDS ORDERED: KETOROLAC 60 MG/2 ML VIAL IM ONE (03:01)
[2023-02-15 03:55] LABS: Appearance,Urine CLOUDY (Clear); Bilirubin,Urine Negative (Negative); Color,Urine YELLOW; Culture Indicated,Urine yes; Glucose,Urine (UA) Negative (Negative); Ketones,Urine 5 mg/dL (Negative); Leukocyte Esterase,Urine 500 /uL (Negative); Nitrate,Urine Negative (Negative); Protein,Urine 100 mg/dL (Negative); Specific Gravity,Urine 1.016 (1.000-1.035); Urine Blood 0.03 mg/dL (Negative); Urine Hyaline Cast 7 /lph (0-2); Urine RBC 5 /hpf (0-3); Urine Squamous Epithelial Cell 1 /hpf (0-4); Urine WBC > 182 /hpf (0-4); Urobilinogen,Urine Negative
[2023-02-15] MEDS: 0.9 % SODIUM CHLORIDE 10 ML SYRINGE IV SCH ×5 (05:18→22:36)
[2023-02-15] MEDS: INSULIN LISPRO 1 UNIT/0.01 ML UNIT SQ SCH ×4 (06:43→20:10)
[2023-02-15] MEDS: ACETAMINOPHEN 325 MG TABLET PO PRN (08:07)
[2023-02-15] MEDS ORDERED: DOCUSATE SODIUM 100 MG CAPSULE PO SCH (09:00)
[2023-02-15] MEDS: NIRMATRELVIR/RITONAVIR 1 EACH BOX PO SCH ×2 (09:46→20:31)
[2023-02-15] MEDS: ENOXAPARIN 40 MG/0.4 ML SYRINGE SQ SCH (09:47)
[2023-02-15] MEDS ORDERED: ALBUTEROL SULFATE 60 PUFF INHALER INH PRN (11:37)
[2023-02-15] MEDS ORDERED: FUROSEMIDE 20 MG TABLET PO PRN (11:37)
[2023-02-15] MEDS ORDERED: NON FORMULARY MEDICATION 1 DOSE MISCELL (Acetaminophen 325 mg capsule) PO PRN (11:37)
[2023-02-15] MEDS ORDERED: LORATADINE 10 MG TABLET PO PRN (11:37)
[2023-02-15] MEDS ORDERED: POTASSIUM CHLORIDE 10 MEQ TABLET PO PRN (11:37)
[2023-02-15] MEDS ORDERED: POLYETHYLENE GLYCOL 3350 17 GM PACKET PO PRN (11:49)
[2023-02-15] MEDS: CALCIUM CARBONATE 500 MG TAB.CHEW CHEWED SCH ×2 (12:28→17:05)
[2023-02-15] MEDS: CARBIDOPA/LEVODOPA CR 25/100 TABLET PO SCH ×3 (12:28→20:10)
[2023-02-15] MEDS: cefTRIAXone 1 GM VIAL IV SCH (12:35)
[2023-02-15] MEDS ORDERED: CARBIDOPA/LEVODOPA CR 50/200 TABLET PO SCH (13:00)
[2023-02-15] MEDS: rOPINIRole 1 MG TABLET PO SCH ×2 (15:14→20:09)
[2023-02-15] MEDS: GABAPENTIN 100 MG CAPSULE PO SCH ×2 (15:15→20:31)
[2023-02-15] MEDS: SENNOSIDES 1 TABLET PO SCH (20:09)
[2023-02-15] MEDS: CARVEDILOL 12.5 MG TABLET PO SCH (20:09)
[2023-02-15] MEDS: IBUPROFEN 600 MG TABLET PO PRN (20:09)
[2023-02-15] MEDS: traZODone HCL 50 MG TABLET PO PRN (20:09)
[2023-02-15] MEDS: DOCUSATE SODIUM 100 MG CAPSULE PO SCH (20:10)
[2023-02-15] MEDS ORDERED: ATORVASTATIN 40 MG TABLET PO SCH (21:00)
[2023-02-15] MEDS ORDERED: SENNOSIDES 1 TABLET PO SCH (21:00)
[2023-02-16] MEDS: 0.9 % SODIUM CHLORIDE 10 ML SYRINGE IV SCH ×5 (04:26→20:49)
[2023-02-16 06:23] LABS: Basophils # (Auto) 0.05 K/mcL (0.00-0.30); Basophils % (Auto) 0.9 % (0.0-2.0); Eosinophils # (Auto) 0.17 K/mcL (0.00-0.70); Eosinophils % (Auto) 2.9 % (0.0-7.0); Hematocrit 38.1 % (34.1-44.9); Lymphocytes # (Auto) 1.65 K/mcL (1.50-4.80); Lymphocytes % (Auto) 28.4 % (15.5-49.0); Mean Cell Volume 92.9 fL (80.0-100.0); Mean Corpuscular HGB Conc 31.5 g/dL (31.0-36.0); Monocytes % (Auto) 15.5 % (1.0-12.0); Neutrophils % (Auto) 52.1 % (38.0-78.0); Platelet Count 172 K/mcL (140-440); Red Cell Distribution Width 13.9 % (11.5-14.5); WBC 5.8 K/mcL (4.5-11.0)
[2023-02-16 06:36] LABS: Estimated Average Glucose(eAG) 177 mg/dL; Hemoglobin A1C 7.8 % Hgb (4.0-6.0)
[2023-02-16 06:40] LABS: ALT/SGPT < 5 U/L (<40); AST/SGOT 17 U/L (<32); Albumin 3.3 gm/dL (3.2-5.2); Albumin/Globulin Ratio 1.3 (1.0-2.3); Alkaline Phosphatase 65 U/L (39-117); Bilirubin,Total 0.2 mg/dL (0.1-1.0); Blood Urea Nitrogen 22 mg/dL (8-23); Calcium 8.7 mg/dL (8.6-10.4); Carbon Dioxide 28 mmol/L (22-30); Chloride 102 mmol/L (96-108); Globulin 2.6 gm/dL (2.2-3.7); Glomerular Filtration Rate 41; Glucose 132 mg/dL (70-105)
[2023-02-16] MEDS: INSULIN LISPRO 1 UNIT/0.01 ML UNIT SQ SCH ×4 (07:02→20:46)
[2023-02-16] MEDS: OMEPRAZOLE 20 MG CAPSULE PO SCH (07:02)
[2023-02-16] MEDS: FLUoxetine HCL 20 MG CAPSULE PO SCH (09:08)
[2023-02-16] MEDS: cefTRIAXone 1 GM VIAL IV SCH (09:08)
[2023-02-16] MEDS: CARVEDILOL 12.5 MG TABLET PO SCH ×2 (09:08→20:46)
[2023-02-16] MEDS: ENOXAPARIN 40 MG/0.4 ML SYRINGE SQ SCH (09:08)
[2023-02-16] MEDS: rOPINIRole 1 MG TABLET PO SCH ×3 (09:08→20:46)
[2023-02-16] MEDS: NIRMATRELVIR/RITONAVIR 1 EACH BOX PO SCH ×2 (09:08→20:51)
[2023-02-16] MEDS: GABAPENTIN 100 MG CAPSULE PO SCH ×3 (09:08→20:46)
[2023-02-16] MEDS: CALCIUM CARBONATE 500 MG TAB.CHEW CHEWED SCH ×4 (09:09→17:47)
[2023-02-16] MEDS: DOCUSATE SODIUM 100 MG CAPSULE PO SCH ×2 (09:09→20:48)
[2023-02-16] MEDS: CLOPIDOGREL 75 MG TABLET PO SCH (09:09)
[2023-02-16] MEDS: MAGNESIUM OXIDE 400 MG TABLET PO SCH (09:09)
[2023-02-16] MEDS: CARBIDOPA/LEVODOPA CR 25/100 TABLET PO SCH ×4 (10:27→20:48)
[2023-02-16] MEDS: VITAMIN D3 25 MCG TABLET PO SCH (11:55)
[2023-02-16] MEDS: ACETAMINOPHEN 325 MG TABLET PO PRN ×2 (15:26→20:48)
[2023-02-16] MEDS: SENNOSIDES 1 TABLET PO SCH (20:48)
[2023-02-17 07:30] LABS: Basophils # (Auto) 0.04 K/mcL (0.00-0.30); Basophils % (Auto) 0.7 % (0.0-2.0); Eosinophils # (Auto) 0.37 K/mcL (0.00-0.70); Eosinophils % (Auto) 6.8 % (0.0-7.0); Hematocrit 39.2 % (34.1-44.9); Hemoglobin 12.4 g/dL (11.2-15.7); Lymphocytes # (Auto) 1.44 K/mcL (1.50-4.80); Lymphocytes % (Auto) 26.4 % (15.5-49.0); Mean Cell Volume 92.9 fL (80.0-100.0); Mean Corpuscular HGB Conc 31.6 g/dL (31.0-36.0); Mean Platelet Volume 9.4 fL (8.8-12.5); Monocytes # (Auto) 0.74 K/mcL (0.10-0.90); Monocytes % (Auto) 13.6 % (1.0-12.0); Neutrophils % (Auto) 52.1 % (38.0-78.0); Platelet Count 182 K/mcL (140-440); RBC 4.22 M/mcL (3.59-5.38); Red Cell Distribution Width 14.2 % (11.5-14.5); WBC 5.5 K/mcL (4.5-11.0)
[2023-02-17] MEDS: CALCIUM CARBONATE 500 MG TAB.CHEW CHEWED SCH ×3 (07:46→18:17)
[2023-02-17] MEDS: INSULIN LISPRO 1 UNIT/0.01 ML UNIT SQ SCH ×3 (07:46→18:17)
[2023-02-17] MEDS: OMEPRAZOLE 20 MG CAPSULE PO SCH (07:46)
[2023-02-17] MEDS: CARBIDOPA/LEVODOPA CR 25/100 TABLET PO SCH ×3 (07:46→15:24)
[2023-02-17] MEDS: 0.9 % SODIUM CHLORIDE 10 ML SYRINGE IV SCH ×2 (07:47→15:25)
[2023-02-17 07:58] LABS: ALT/SGPT < 5 U/L (<40); AST/SGOT 17 U/L (<32); Albumin 3.4 gm/dL (3.2-5.2); Albumin/Globulin Ratio 1.3 (1.0-2.3); Alkaline Phosphatase 77 U/L (39-117); Bilirubin,Total 0.2 mg/dL (0.1-1.0); Blood Urea Nitrogen 20 mg/dL (8-23); Calcium 8.5 mg/dL (8.6-10.4); Carbon Dioxide 27 mmol/L (22-30); Chloride 102 mmol/L (96-108); Globulin 2.6 gm/dL (2.2-3.7); Glomerular Filtration Rate 52; Glucose 133 mg/dL (70-105)
[2023-02-17] MEDS: GABAPENTIN 100 MG CAPSULE PO SCH ×2 (08:43→15:24)
[2023-02-17] MEDS: MAGNESIUM OXIDE 400 MG TABLET PO SCH (08:43)
[2023-02-17] MEDS: CARVEDILOL 12.5 MG TABLET PO SCH (08:44)
[2023-02-17] MEDS: FLUoxetine HCL 20 MG CAPSULE PO SCH (08:45)
[2023-02-17] MEDS: rOPINIRole 1 MG TABLET PO SCH ×2 (08:45→15:24)
[2023-02-17] MEDS: DOCUSATE SODIUM 100 MG CAPSULE PO SCH (08:46)
[2023-02-17] MEDS: CLOPIDOGREL 75 MG TABLET PO SCH (08:46)
[2023-02-17] MEDS: VITAMIN D3 25 MCG TABLET PO SCH (08:46)
[2023-02-17] MEDS: NIRMATRELVIR/RITONAVIR 1 EACH BOX PO SCH (08:49)
[2023-02-17] MEDS: ENOXAPARIN 40 MG/0.4 ML SYRINGE SQ SCH (08:49)
[2023-02-17] MEDS: cefTRIAXone 1 GM VIAL IV SCH (08:52)
[2023-02-17] MEDS ORDERED: FLUCONAZOLE 100 MG TABLET PO ONE (14:40)
[2023-02-17] MEDS ORDERED: CARBIDOPA/LEVODOPA CR 50/200 TABLET PO SCH (15:00)
[2023-02-17] MEDS: ACETAMINOPHEN 325 MG TABLET PO PRN (18:16)
[2023-02-18] MEDS: NIRMATRELVIR/RITONAVIR 1 EACH BOX PO SCH ×3 (00:33→21:10)
[2023-02-18] MEDS: SENNOSIDES 1 TABLET PO SCH ×2 (00:37→21:02)
[2023-02-18] MEDS: DOCUSATE SODIUM 100 MG CAPSULE PO SCH ×3 (00:37→21:03)
[2023-02-18] MEDS: CARBIDOPA/LEVODOPA CR 25/100 TABLET PO SCH ×5 (00:39→21:04)
[2023-02-18] MEDS: CARVEDILOL 12.5 MG TABLET PO SCH ×3 (00:39→21:02)
[2023-02-18] MEDS: rOPINIRole 1 MG TABLET PO SCH ×4 (00:40→21:01)
[2023-02-18] MEDS: IBUPROFEN 600 MG TABLET PO PRN (00:40)
[2023-02-18] MEDS: GABAPENTIN 100 MG CAPSULE PO SCH ×4 (00:42→21:01)
[2023-02-18] MEDS: 0.9 % SODIUM CHLORIDE 10 ML SYRINGE IV SCH ×4 (00:42→21:03)
[2023-02-18] MEDS: INSULIN LISPRO 1 UNIT/0.01 ML UNIT SQ SCH ×5 (01:04→21:11)
[2023-02-18] MEDS: guaiFENesin/DEXTROMETHORPHAN 5ML UD CUP PO PRN (01:05)
[2023-02-18] MEDS: CALCIUM CARBONATE 500 MG TAB.CHEW CHEWED SCH ×3 (07:43→17:49)
[2023-02-18] MEDS: OMEPRAZOLE 20 MG CAPSULE PO SCH (07:43)
[2023-02-18 07:44] LABS: Basophils # (Auto) 0.03 K/mcL (0.00-0.30); Basophils % (Auto) 0.5 % (0.0-2.0); Eosinophils # (Auto) 0.49 K/mcL (0.00-0.70); Eosinophils % (Auto) 8.1 % (0.0-7.0); Hematocrit 36.7 % (34.1-44.9); Hemoglobin 11.2 g/dL (11.2-15.7); Lymphocytes # (Auto) 2.29 K/mcL (1.50-4.80); Lymphocytes % (Auto) 37.9 % (15.5-49.0); Mean Cell Volume 95.3 fL (80.0-100.0); Mean Corpuscular HGB Conc 30.5 g/dL (31.0-36.0); Mean Platelet Volume 9.2 fL (8.8-12.5); Monocytes # (Auto) 0.71 K/mcL (0.10-0.90); Monocytes % (Auto) 11.8 % (1.0-12.0); Neutrophils % (Auto) 41.5 % (38.0-78.0); Platelet Count 192 K/mcL (140-440); RBC 3.85 M/mcL (3.59-5.38); Red Cell Distribution Width 14.5 % (11.5-14.5)
[2023-02-18 08:45] LABS: ALT/SGPT < 5 U/L (<40); AST/SGOT 13 U/L (<32); Albumin/Globulin Ratio 1.2 (1.0-2.3); Alkaline Phosphatase 68 U/L (39-117); Bilirubin,Total 0.2 mg/dL (0.1-1.0); Blood Urea Nitrogen 25 mg/dL (8-23); Calcium 8.1 mg/dL (8.6-10.4); Carbon Dioxide 25 mmol/L (22-30); Chloride 101 mmol/L (96-108); Globulin 2.6 gm/dL (2.2-3.7); Glomerular Filtration Rate 41; Glucose 104 mg/dL (70-105)
[2023-02-18] MEDS ORDERED: FLUCONAZOLE 100 MG TABLET PO SCH ×2 (09:00→11:00)
[2023-02-18] MEDS: VITAMIN D3 25 MCG TABLET PO SCH (09:07)
[2023-02-18] MEDS: CLOPIDOGREL 75 MG TABLET PO SCH (09:08)
[2023-02-18] MEDS: MAGNESIUM OXIDE 400 MG TABLET PO SCH (09:08)
[2023-02-18] MEDS: cefTRIAXone 1 GM VIAL IV SCH (09:09)
[2023-02-18] MEDS: FLUoxetine HCL 20 MG CAPSULE PO SCH (09:09)
[2023-02-18] MEDS: ENOXAPARIN 40 MG/0.4 ML SYRINGE SQ SCH (09:13)
[2023-02-18] MEDS: ACETAMINOPHEN 325 MG TABLET PO PRN (18:54)
[2023-02-19] MEDS: 0.9 % SODIUM CHLORIDE 10 ML SYRINGE IV SCH ×3 (05:10→20:20)
[2023-02-19] MEDS: INSULIN LISPRO 1 UNIT/0.01 ML UNIT SQ SCH ×4 (07:27→20:03)
[2023-02-19] MEDS: CALCIUM CARBONATE 500 MG TAB.CHEW CHEWED SCH ×5 (07:27→16:59)
[2023-02-19] MEDS: OMEPRAZOLE 20 MG CAPSULE PO SCH (07:27)
[2023-02-19] MEDS: rOPINIRole 1 MG TABLET PO SCH ×3 (09:16→20:01)
[2023-02-19] MEDS: FLUoxetine HCL 20 MG CAPSULE PO SCH (09:16)
[2023-02-19] MEDS: VITAMIN D3 25 MCG TABLET PO SCH (09:16)
[2023-02-19] MEDS: CARBIDOPA/LEVODOPA CR 25/100 TABLET PO SCH ×4 (09:16→20:01)
[2023-02-19] MEDS: GABAPENTIN 100 MG CAPSULE PO SCH ×3 (09:16→20:01)
[2023-02-19] MEDS: CARVEDILOL 12.5 MG TABLET PO SCH ×2 (09:16→20:10)
[2023-02-19] MEDS: NIRMATRELVIR/RITONAVIR 1 EACH BOX PO SCH ×2 (09:17→20:04)
[2023-02-19] MEDS: DOCUSATE SODIUM 100 MG CAPSULE PO SCH ×2 (09:17→20:15)
[2023-02-19] MEDS: MAGNESIUM OXIDE 400 MG TABLET PO SCH (09:17)
[2023-02-19] MEDS: CLOPIDOGREL 75 MG TABLET PO SCH (09:17)
[2023-02-19] MEDS: ENOXAPARIN 40 MG/0.4 ML SYRINGE SQ SCH (09:17)
[2023-02-19] MEDS: DULAGLUTIDE 0.75 MG/0.5 ML SUB-Q SCH ×2 (09:18→20:05)
[2023-02-19] MEDS: cefTRIAXone 1 GM VIAL IV SCH (09:57)
[2023-02-19] MEDS: ACETAMINOPHEN 325 MG TABLET PO PRN ×2 (11:37→21:06)
[2023-02-19] MEDS: SENNOSIDES 1 TABLET PO SCH (20:00)
[2023-02-19] MEDS: traZODone HCL 50 MG TABLET PO PRN (20:02)
[2023-02-20] MEDS: ACETAMINOPHEN 325 MG TABLET PO PRN ×3 (03:03→20:49)
[2023-02-20] MEDS: 0.9 % SODIUM CHLORIDE 10 ML SYRINGE IV SCH ×3 (05:26→20:51)
[2023-02-20] MEDS: CARBIDOPA/LEVODOPA CR 25/100 TABLET PO SCH ×4 (08:13→20:52)
[2023-02-20] MEDS: VITAMIN D3 25 MCG TABLET PO SCH (08:13)
[2023-02-20] MEDS: GABAPENTIN 100 MG CAPSULE PO SCH ×3 (08:13→20:51)
[2023-02-20] MEDS: FLUoxetine HCL 20 MG CAPSULE PO SCH (08:13)
[2023-02-20] MEDS: OMEPRAZOLE 20 MG CAPSULE PO SCH (08:14)
[2023-02-20] MEDS: CARVEDILOL 12.5 MG TABLET PO SCH ×2 (08:14→20:50)
[2023-02-20] MEDS: MAGNESIUM OXIDE 400 MG TABLET PO SCH (08:15)
[2023-02-20] MEDS: rOPINIRole 1 MG TABLET PO SCH ×3 (08:15→20:51)
[2023-02-20] MEDS: ENOXAPARIN 40 MG/0.4 ML SYRINGE SQ SCH (08:15)
[2023-02-20] MEDS: CALCIUM CARBONATE 500 MG TAB.CHEW CHEWED SCH ×3 (08:16→16:59)
[2023-02-20] MEDS: DOCUSATE SODIUM 100 MG CAPSULE PO SCH ×2 (08:16→20:51)
[2023-02-20] MEDS: CLOPIDOGREL 75 MG TABLET PO SCH (08:18)
[2023-02-20] MEDS: INSULIN LISPRO 1 UNIT/0.01 ML UNIT SQ SCH ×4 (08:18→20:47)
[2023-02-20] MEDS: SENNOSIDES 1 TABLET PO SCH (20:50)
[2023-02-21] MEDS: 0.9 % SODIUM CHLORIDE 10 ML SYRINGE IV SCH ×3 (05:42→21:18)
[2023-02-21] MEDS: OMEPRAZOLE 20 MG CAPSULE PO SCH (07:35)
[2023-02-21] MEDS: INSULIN LISPRO 1 UNIT/0.01 ML UNIT SQ SCH ×4 (07:37→21:18)
[2023-02-21] MEDS: CALCIUM CARBONATE 500 MG TAB.CHEW CHEWED SCH ×3 (07:38→16:13)
[2023-02-21] MEDS: ENOXAPARIN 40 MG/0.4 ML SYRINGE SQ SCH (08:21)
[2023-02-21] MEDS: FLUoxetine HCL 20 MG CAPSULE PO SCH (08:21)
[2023-02-21] MEDS: MAGNESIUM OXIDE 400 MG TABLET PO SCH (08:21)
[2023-02-21] MEDS: rOPINIRole 1 MG TABLET PO SCH ×3 (08:22→21:18)
[2023-02-21] MEDS: VITAMIN D3 25 MCG TABLET PO SCH (08:22)
[2023-02-21] MEDS: CARVEDILOL 12.5 MG TABLET PO SCH ×2 (08:22→21:17)
[2023-02-21] MEDS: CARBIDOPA/LEVODOPA CR 25/100 TABLET PO SCH ×4 (08:22→21:17)
[2023-02-21] MEDS: GABAPENTIN 100 MG CAPSULE PO SCH ×3 (08:22→21:18)
[2023-02-21] MEDS: DOCUSATE SODIUM 100 MG CAPSULE PO SCH ×2 (08:23→19:11)
[2023-02-21] MEDS: CLOPIDOGREL 75 MG TABLET PO SCH (08:23)
[2023-02-21] MEDS: ACETAMINOPHEN 325 MG TABLET PO PRN ×2 (08:30→21:21)
[2023-02-21] MEDS: SENNOSIDES 1 TABLET PO SCH (19:11)
[2023-02-22] MEDS: ACETAMINOPHEN 325 MG TABLET PO PRN ×3 (03:27→20:52)
[2023-02-22] MEDS: 0.9 % SODIUM CHLORIDE 10 ML SYRINGE IV SCH ×3 (05:49→20:00)
[2023-02-22] MEDS: INSULIN LISPRO 1 UNIT/0.01 ML UNIT SQ SCH ×4 (08:10→19:59)
[2023-02-22] MEDS: rOPINIRole 1 MG TABLET PO SCH ×3 (08:35→20:52)
[2023-02-22] MEDS: VITAMIN D3 25 MCG TABLET PO SCH (08:35)
[2023-02-22] MEDS: OMEPRAZOLE 20 MG CAPSULE PO SCH (08:35)
[2023-02-22] MEDS: CLOPIDOGREL 75 MG TABLET PO SCH (08:36)
[2023-02-22] MEDS: CARVEDILOL 12.5 MG TABLET PO SCH ×2 (08:36→20:52)
[2023-02-22] MEDS: DOCUSATE SODIUM 100 MG CAPSULE PO SCH ×2 (08:36→20:53)
[2023-02-22] MEDS: MAGNESIUM OXIDE 400 MG TABLET PO SCH (08:37)
[2023-02-22] MEDS: FLUoxetine HCL 20 MG CAPSULE PO SCH (08:37)
[2023-02-22] MEDS: GABAPENTIN 100 MG CAPSULE PO SCH ×3 (08:38→20:52)
[2023-02-22] MEDS: ENOXAPARIN 40 MG/0.4 ML SYRINGE SQ SCH (08:38)
[2023-02-22] MEDS: CALCIUM CARBONATE 500 MG TAB.CHEW CHEWED SCH ×2 (08:47→13:27)
[2023-02-22] MEDS: CARBIDOPA/LEVODOPA CR 25/100 TABLET PO SCH ×4 (09:03→20:52)
[2023-02-22] MEDS: SENNOSIDES 1 TABLET PO SCH (20:53)
[2023-02-22] MEDS: traZODone HCL 50 MG TABLET PO PRN (20:53)
[2023-02-23] MEDS: 0.9 % SODIUM CHLORIDE 10 ML SYRINGE IV SCH (04:18)
[2023-02-23] MEDS: guaiFENesin/DEXTROMETHORPHAN 5ML UD CUP PO PRN (04:24)
[2023-02-23] MEDS: INSULIN LISPRO 1 UNIT/0.01 ML UNIT SQ SCH ×2 (08:22→11:52)
[2023-02-23] MEDS: GABAPENTIN 100 MG CAPSULE PO SCH (08:25)
[2023-02-23] MEDS: VITAMIN D3 25 MCG TABLET PO SCH (08:25)
[2023-02-23] MEDS: rOPINIRole 1 MG TABLET PO SCH (08:25)
[2023-02-23] MEDS: CARBIDOPA/LEVODOPA CR 25/100 TABLET PO SCH ×2 (08:27→11:59)
[2023-02-23] MEDS: CARVEDILOL 12.5 MG TABLET PO SCH (08:28)
[2023-02-23] MEDS: FLUoxetine HCL 20 MG CAPSULE PO SCH (08:28)
[2023-02-23] MEDS: OMEPRAZOLE 20 MG CAPSULE PO SCH (08:29)
[2023-02-23] MEDS: MAGNESIUM OXIDE 400 MG TABLET PO SCH (08:29)
[2023-02-23] MEDS: ENOXAPARIN 40 MG/0.4 ML SYRINGE SQ SCH (08:29)
[2023-02-23] MEDS: CLOPIDOGREL 75 MG TABLET PO SCH (08:29)
[2023-02-23] MEDS: DOCUSATE SODIUM 100 MG CAPSULE PO SCH (08:29)
[2023-02-23] MEDS: ACETAMINOPHEN 325 MG TABLET PO PRN (13:30)
== END 2023-02-23 15:10 | DRG 177 ==
LOC: ICU 20:38 → ED 20:38 → ICU 02-15 04:47 → MEDSUR 02-16 16:24
PROVIDERS: ADMIT Internal Medicine; ATTEND Internal Medicine

== ENCOUNTER 2024-07-06 15:51 | Inpatient (IN) ==
[2024-07-06] MEDS ORDERED: IOPAMIDOL 100 ML BOTTLE IV ONE (15:52)
[2024-07-06] MEDS: 0.9 % SODIUM CHLORIDE 1,000 ML IV ONE (16:29)
[2024-07-06 16:48] LABS: Basophils # (Auto) 0.02 K/mcL (0.00-0.30); Basophils % (Auto) 0.2 % (0.0-2.0); Eosinophils # (Auto) 0.38 K/mcL (0.00-0.70); Eosinophils % (Auto) 3.7 % (0.0-7.0); Hematocrit 31.2 % (34.1-44.9); Hemoglobin 9.1 g/dL (11.2-15.7); Lymphocytes # (Auto) 1.53 K/mcL (1.50-4.80); Lymphocytes % (Auto) 14.9 % (15.5-49.0); Mean Cell Volume 75.7 fL (80.0-100.0); Mean Corpuscular HGB Conc 29.2 g/dL (31.0-36.0); Mean Platelet Volume 8.7 fL (8.8-12.5); Monocytes # (Auto) 1.14 K/mcL (0.10-0.90); Monocytes % (Auto) 11.1 % (1.0-12.0); Neutrophils % (Auto) 69.7 % (38.0-78.0); Platelet Count 291 K/mcL (140-440); RBC 4.12 M/mcL (3.59-5.38); Red Cell Distribution Width 18.5 % (11.5-14.5); WBC 10.3 K/mcL (4.5-11.0)
[2024-07-06 17:08] LABS: Blood Urea Nitrogen 27 mg/dL (8-23); Calcium 8.5 mg/dL (8.6-10.4); Carbon Dioxide 20 mmol/L (22-30); Chloride 103 mmol/L (96-108); Glomerular Filtration Rate 46; Glucose 155 mg/dL (70-105); Potassium 4.1 mmol/L (3.3-5.1); Sodium 135 mmol/L (133-145)
[2024-07-06] MEDS: 0.9 % SODIUM CHLORIDE 500 ML IV ONE (18:34)
[2024-07-06] MEDS ORDERED: POTASSIUM CHLORIDE 40 MEQ in DEXTROSE 5% IN WATER 500 ML IV PRN (20:23)
[2024-07-06] MEDS ORDERED: ONDANSETRON 4 MG/2 ML VIAL IV PRN (20:23)
[2024-07-06] MEDS ORDERED: LABETALOL HCL 20 MG/4 ML VIAL IV PRN (20:23)
[2024-07-06] MEDS ORDERED: METOCLOPRAMIDE 10 MG/2 ML VIAL IV PRN (20:23)
[2024-07-06] MEDS ORDERED: DEXTROSE 50% 50 ML VIAL IV PRN (20:23)
[2024-07-06] MEDS ORDERED: ENALAPRILAT 1.25 MG/ML VIAL IV PRN (20:23)
[2024-07-06] MEDS ORDERED: MAGNESIUM SULFATE 2 GM/50 ML BAG IV PRN (20:23)
[2024-07-06] MEDS ORDERED: POTASSIUM CHLORIDE 20 MEQ TABLET PO PRN ×2 (20:23)
[2024-07-06] MEDS ORDERED: IPRATROPIUM/ALBUTEROL 3 ML AMPUL.NEB NEB PRN (20:23)
[2024-07-06] MEDS ORDERED: DEXTROSE 31 GM ORAL.SUSP PO PRN (20:23)
[2024-07-06 22:04] LABS: Appearance,Urine Cloudy (Clear); Bacteria,Urine Many /hpf (0); Bilirubin,Urine Negative (Negative); Color,Urine Yellow; Glucose,Urine (UA) Negative (Negative); Ketones,Urine Negative (Negative); Leukocyte Esterase,Urine Moderate /uL (Negative); Nitrate,Urine Negative (Negative); Protein,Urine Negative (Negative); Urine Blood Trace-lysed ery/mcL (Negative); Urine RBC 0 /hpf (0-3); Urine Squamous Epithelial Cell 16 /hpf (0-4); Urine WBC > 182 /hpf (0-4); Urobilinogen,Urine Normal
[2024-07-06] MEDS: INSULIN LISPRO 1 UNIT/0.01 ML UNIT SQ SCH (22:08)
[2024-07-07] MEDS: 0.9 % SODIUM CHLORIDE 10 ML SYRINGE IV SCH (00:06)
[2024-07-07 07:02] LABS: Basophils # (Auto) 0.03 K/mcL (0.00-0.30); Basophils % (Auto) 0.3 % (0.0-2.0); Eosinophils # (Auto) 0.34 K/mcL (0.00-0.70); Eosinophils % (Auto) 3.5 % (0.0-7.0); Lymphocytes # (Auto) 1.92 K/mcL (1.50-4.80); Lymphocytes % (Auto) 19.8 % (15.5-49.0); Mean Cell Volume 75.4 fL (80.0-100.0); Mean Platelet Volume 8.9 fL (8.8-12.5); Monocytes # (Auto) 1.36 K/mcL (0.10-0.90); Neutrophils % (Auto) 62.2 % (38.0-78.0); Platelet Count 283 K/mcL (140-440); RBC 3.98 M/mcL (3.59-5.38); Red Cell Distribution Width 18.6 % (11.5-14.5); WBC 9.7 K/mcL (4.5-11.0)
[2024-07-07 07:37] LABS: ALT/SGPT < 5 U/L (<40); AST/SGOT 14 U/L (<32); Albumin 3.3 gm/dL (3.2-5.2); Albumin/Globulin Ratio 1.3 (1.0-2.3); Alkaline Phosphatase 87 U/L (39-117); Bilirubin,Direct 0.2 mg/dL (<0.3); Bilirubin,Total 0.3 mg/dL (0.1-1.0); Blood Urea Nitrogen 17 mg/dL (8-23); Calcium 8.7 mg/dL (8.6-10.4); Carbon Dioxide 21 mmol/L (22-30); Chloride 104 mmol/L (96-108); Globulin 2.5 gm/dL (2.2-3.7); Glomerular Filtration Rate 58; Glucose 94 mg/dL (70-105); Lactate Dehydrogenase 158 U/L (135-225); Phosphorous 2.8 mg/dL (2.5-4.5); Potassium 3.8 mmol/L (3.3-5.1); Sodium 138 mmol/L (133-145); Triglycerides 93 mg/dL (<150); Uric Acid 6.6 mg/dL (2.5-8.0)
[2024-07-07] MEDS: CARBIDOPA/LEVODOPA CR 25/100 TABLET PO SCH ×2 (10:23→21:20)
[2024-07-07] MEDS: rOPINIRole 1 MG TABLET PO SCH (10:23)
[2024-07-07] MEDS: GABAPENTIN 100 MG CAPSULE PO SCH (10:24)
[2024-07-07] MEDS: ENOXAPARIN 40 MG/0.4 ML SYRINGE SQ SCH (10:24)
[2024-07-07] MEDS: CARVEDILOL 12.5 MG TABLET PO SCH (10:24)
[2024-07-07] MEDS: FLUoxetine HCL 20 MG CAPSULE PO SCH (10:24)
[2024-07-07] MEDS: OMEPRAZOLE 20 MG CAPSULE PO SCH (10:25)
[2024-07-07] MEDS: CIPROFLOXACIN 400 MG/200 ML BAG IV SCH (10:25)
[2024-07-07] MEDS: metroNIDAZOLE 500 MG/100 ML BAG IV SCH (11:41)
[2024-07-07] MEDS: ATORVASTATIN 40 MG TABLET PO SCH (21:21)
[2024-07-07] MEDS: ACETAMINOPHEN 325 MG TABLET PO PRN (22:21)
[2024-07-09] MEDS ORDERED: LOPERAMIDE 2 MG CAPSULE PO PRN (07:52)
[2024-07-09] MEDS: FUROSEMIDE 40 MG TABLET PO SCH (08:25)
[2024-07-09 08:34] LABS: ALT/SGPT < 5 U/L (<40); AST/SGOT 15 U/L (<32); Albumin 3.5 gm/dL (3.2-5.2); Albumin/Globulin Ratio 1.4 (1.0-2.3); Alkaline Phosphatase 83 U/L (39-117); Bilirubin,Direct 0.2 mg/dL (<0.3); Bilirubin,Total 0.4 mg/dL (0.1-1.0); Blood Urea Nitrogen 13 mg/dL (8-23); Calcium 8.9 mg/dL (8.6-10.4); Carbon Dioxide 25 mmol/L (22-30); Chloride 104 mmol/L (96-108); Globulin 2.5 gm/dL (2.2-3.7); Glomerular Filtration Rate 67; Glucose 111 mg/dL (70-105); Lactate Dehydrogenase 157 U/L (135-225); Potassium 3.9 mmol/L (3.3-5.1); Sodium 140 mmol/L (133-145); Triglycerides 61 mg/dL (<150); Uric Acid 5.4 mg/dL (2.5-8.0)
[2024-07-09] MEDS ORDERED: IOPAMIDOL 100 ML BOTTLE IV ONE (10:44)
[2024-07-09] MEDS: cefTRIAXone 2 GM in DEXTROSE 5% IN WATER 50 ML IV SCH (11:42)
[2024-07-11 17:57] LABS: Basophils # (Auto) 0.09 K/mcL (0.00-0.30); Basophils % (Auto) 1.1 % (0.0-2.0); Eosinophils # (Auto) 0.78 K/mcL (0.00-0.70); Eosinophils % (Auto) 9.4 % (0.0-7.0); Hematocrit 34.9 % (34.1-44.9); Hemoglobin 10.1 g/dL (11.2-15.7); Lymphocytes # (Auto) 2.59 K/mcL (1.50-4.80); Lymphocytes % (Auto) 31.1 % (15.5-49.0); Mean Corpuscular HGB Conc 28.9 g/dL (31.0-36.0); Mean Platelet Volume 8.8 fL (8.8-12.5); Monocytes # (Auto) 0.88 K/mcL (0.10-0.90); Monocytes % (Auto) 10.6 % (1.0-12.0); Neutrophils % (Auto) 47.4 % (38.0-78.0); Platelet Count 371 K/mcL (140-440); RBC 4.59 M/mcL (3.59-5.38); Red Cell Distribution Width 18.1 % (11.5-14.5); WBC 8.3 K/mcL (4.5-11.0)
[2024-07-11 17:57] LABS: Blood Urea Nitrogen 21 mg/dL (8-23); Calcium 8.8 mg/dL (8.6-10.4); Carbon Dioxide 27 mmol/L (22-30); Chloride 98 mmol/L (96-108); Glomerular Filtration Rate 46; Glucose 163 mg/dL (70-105); Potassium 3.7 mmol/L (3.3-5.1); Sodium 138 mmol/L (133-145)
[2024-07-11] MEDS: AMOXICILLIN/POTASSIUM CLAV 875 MG TABLET PO SCH (21:33)
[2024-07-11] MEDS: metroNIDAZOLE 500 MG TABLET PO SCH (21:44)
[2024-07-11] MEDS: CIPROFLOXACIN 500 MG TABLET PO SCH (21:44)
[2024-07-12 13:12] VITALS: TEMP 98; O2SAT 90
== END 2024-07-12 12:44 | DRG 392 ==
LOC: ED 15:51 → MEDSUR 15:51
PROVIDERS: ADMIT Internal Medicine; ATTEND Student in an Organized Health Care Education/Training Program